=== PATIENT | female | born 1945 | race Caucasian/White ===

== ENCOUNTER 2017-09-25 08:28 | Outpatient (CLI) | payer MEDICARE ==
[~2017-09-25 08:28] MED LIST: CYCL-394 PO; DULO-31 PO; EST1T PO; FOLI1TAB16 PO; HYDR200T84 PO; METH2.5T PO; MULT-933 PO; MULT1TAB74 PO; NAPR220C15 PO; OMEP40CA37 PO; TRAM50TA2 PO
== END 2017-09-25 23:59 | disposition home or self-care (01) ==
LOC: RT 08:28
PROVIDERS: ATTEND Internal Medicine Rheumatology
DX: M34.1 CR(E)ST syndrome (principal); F17.210 Nicotine dependence, cigarettes, uncomplicated; M06.9 Rheumatoid arthritis, unspecified; I10 Essential (primary) hypertension; Z79.899 Other long term (current) drug therapy
CPT/HCPCS: 94010; 94729

== ENCOUNTER 2019-04-27 08:41 | Outpatient (CLI) | payer MEDICARE ==
[~2019-04-27 08:41] MED LIST changes: +OMEP40CA13 PO; -OMEP40CA37 PO
== END 2019-04-27 23:59 | disposition home or self-care (01) ==
LOC: RT 08:41
PROVIDERS: ATTEND Internal Medicine Rheumatology
DX: M34.1 CR(E)ST syndrome (principal); R06.02 Shortness of breath
CPT/HCPCS: 94010; 94729

== ENCOUNTER 2021-05-14 20:17 | Inpatient (IN) | payer MEDICARE ==
[~2021-05-14] VITALS: Ht 162.6 cm; Wt 85.0 kg
[~2021-05-14 20:17] MED LIST changes: -FOLI1TAB16 PO; +FOLI1TAB27 PO; +MULT-620 PO; -MULT1TAB74 PO; -OMEP40CA13 PO; +OMEP40CA21 PO
[2021-05-14] MEDS ORDERED: metoprolol tartrate 1mg/ml inj IV ONE ×2 (21:00→21:50)
[2021-05-14] MEDS ORDERED: metoprolol tartrate 50mg tablet PO ONE (21:00)
[2021-05-14 21:49] LABS: ALANINE AMINOTRANSFERASE 33 U/L (12-78); ALBUMIN 3.7 G/DL (3.4-5.0); ALKALINE PHOSPHATASE 94 IU/L (46-116); ANION GAP 16 (8-16); ASPARTATE AMINO TRANSFERASE 37 U/L (10-37); BILIRUBIN,TOTAL 0.4 MG/DL (0.1-1.0); BLOOD UREA NITROGEN 32 MG/DL (7-18); BUN/CREATININE RATIO 23.7 (6.6-38.0); CALCIUM 9.3 MG/DL (8.5-10.1); CHLORIDE 105 MMOL/L (99-107); CREATININE 1.35 MG/DL (0.40-0.90); GLUCOSE 127 MG/DL (70-104); POTASSIUM 3.7 MMOL/L (3.5-5.1); SODIUM 146 MMOL/L (135-145); TOTAL CARBON DIOXIDE 24.6 MMOL/L (24-32); TOTAL PROTEIN 7.5 G/DL (6.4-8.2); eGFR 38 ML/MIN
[2021-05-14] MEDS: cloNIDine 0.1 mg tablet PO ONE ×2 (21:50→22:28)
[2021-05-14 21:53] LABS: BASOPHILS # (AUTO) 0.1 X10'3 (0-0.2); BASOPHILS % (AUTO) 1.4 % (0-1); EOSINOPHILS # (AUTO) 0.1 X10'3 (0-0.9); EOSINOPHILS % (AUTO) 2.1 % (0-6); HEMATOCRIT 34.1 % (35.0-45.0); HEMOGLOBIN 11.1 g/dl (12.0-16.0); LYMPHOCYTES # (AUTO) 0.7 X10'3 (1.1-4.8); LYMPHOCYTES % (AUTO) 9.9 % (21-51); MEAN CORPUSCULAR HEMOGLOBIN 30.8 PG (27.0-31.0); MEAN CORPUSCULAR HGB CONC 32.5 g/dL (33.0-36.5); MEAN CORPUSCULAR VOLUME 94.7 FL (78-98); MEAN PLATELET VOLUME 9.2 FL (7.4-10.4); MONOCYTES # (AUTO) 0.7 X10'3 (0-0.9); NEUTROPHILS # (AUTO) 5.3 X10'3 (1.8-7.7); NEUTROPHILS % (AUTO) 76.6 % (42-75); PLATELET COUNT 239 X10'3 (140-440); RED CELL DISTRIBUTION WIDTH 14.7 % (11.5-14.5)
[2021-05-14] MEDS: nitroGLYCERIN 0.4mg SUBLingual tab SL PRN ×4 (22:00→22:30)
[2021-05-14 22:03] LABS: D-DIMER 3.21 MG/L FEU (0-0.50)
[2021-05-14] MEDS: aspirin 81mg tab.chew PO ONE ×2 (22:10→23:07)
[2021-05-14] MEDS ORDERED: CELE-193 PO (22:15)
[2021-05-14] MEDS ORDERED: iohexol 350MG/ML 100ml bottle IV ONE (22:17)
[2021-05-14] MEDS ORDERED: CYCL-1 PO (22:20)
[2021-05-14] MEDS ORDERED: NIFE90TA44 PO (22:20)
[2021-05-14] MEDS ORDERED: LOSA25TA96 PO (22:20)
--- NOTE | 2021-05-14 22:34 | NUR ---
catapres not given to pt. unable to alter the emar
[2021-05-14] MEDS ORDERED: morphine 4 MG/ML inj SYRINge IV ONE (22:50)
[2021-05-14] MEDS: niCARDipine-NS 40mg/200ml IVPB 200 ML IV SCH (23:14)
--- NOTE | 2021-05-14 23:31 | NUR ---
Dr. See advised target bp to be 140 systolic
[2021-05-15] VITALS (18 sets, daily range): BP systolic 92–183; BP diastolic 43–111
[2021-05-15] MEDS ORDERED: morphine 2 MG/ML inj. syringe IV PRN (02:10)
[2021-05-15] MEDS ORDERED: acetaminophen 325mg tablet PO PRN ×2 (02:10)
[2021-05-15] MEDS ORDERED: magnesium hydroxide 30ml (MOM) UD suspension PO PRN (02:10)
[2021-05-15] MEDS: morphine 4 MG/ML inj SYRINge IV PRN ×2 (02:58→19:37)
[2021-05-15] MEDS: niCARDipine-NS 40mg/200ml IVPB 200 ML IV SCH ×2 (03:02→22:45)
[2021-05-15] MEDS ORDERED: sod chloride 0.9% 10ml flush syringe IV ONE ×2 (08:00)
[2021-05-15] MEDS ORDERED: rocuronium 10mg/ml inj IV ONE ×2 (08:00)
[2021-05-15] MEDS ORDERED: etomidate 2mg/ml inj. ONE ×2 (08:00)
--- NOTE | 2021-05-15 09:13 | NUR ---
Patient in room CICU 2007. I have received report from Simon EATON and had the opportunity to ask questions and assume patient care. Diet order obtained from Dr. Leroy for pt. as she is NPO. Will start 24hr urine collection at next void.
[2021-05-15 09:23] LABS: C-REACTIVE PROTEIN 0.35 MG/DL (0.0-0.5); CHOL/HDL RATIO 3.2 (0.00-4.99); CHOLESTEROL 193 MG/DL (0-200); HDL CHOLESTEROL 61 MG/DL (35-60); LDL CHOLESTEROL 100 MG/DL (50-100); TRIGLYCERIDES 80 MG/DL (20-135)
[2021-05-15] MEDS: hydroxychloroquine 200mg tablet PO SCH (09:33)
[2021-05-15] MEDS ORDERED: LEFL10TA20 PO (10:08)
--- NOTE | 2021-05-15 10:28 | NUR ---
ROUNDS NOTE: Spouse present for rounds. Pt. to have work-up today including: ECHO, Carotids, Renal scan, 24h urine collection and IR consult for possible renal artery stent.
[2021-05-15] MEDS: captoPRIL 25mg tablet PO SCH ×2 (10:57→16:00)
[2021-05-15] MEDS: pantoprazole 40mg Tablet.DR PO SCH (10:57)
--- NOTE | 2021-05-15 11:04 | NUR ---
Pt. assisted off BSC. Pt. got to BSC without calling for assistance. RN instructed pt. to use call light prior to getting OOB as pt. is a Fall Risk. Pt. observed to be unsteady on her feet. Fall Risk bracelet placed on pt. Non-skid socks provided, Fall Risk problem added to her care plan.
--- NOTE | 2021-05-15 11:54 | NUR ---
Dr. Vitale at bedside. Akiko family friend at bedside.
[2021-05-15] MEDS ORDERED: LIDOcaine 1% (10mg/ml)w/preservative inj. 20ml MDV ONE (12:14)
[2021-05-15] MEDS ORDERED: midazolam 1 mg/ML 2ml injection ONE ×3 (12:15→16:00)
[2021-05-15] MEDS ORDERED: fentaNYL/PF 50MCG/1 ML 2ML syringe ONE (12:15)
[2021-05-15] MEDS ORDERED: heparin 1,000 UNITS/NS 500ml 500 ML ONE ×2 (12:15→14:12)
[2021-05-15] MEDS ORDERED: iohexol 300mg/ml 100ml inj. ONE ×2 (12:15→14:12)
--- NOTE | 2021-05-15 13:15 | NUR ---
Pt. to IR with Dr. Vitale.
[2021-05-15] MEDS ORDERED: diphenhydrAMINE 50 mg/ml inj ONE ×2 (13:45→13:47)
[2021-05-15] MEDS ORDERED: heparin 1,000unit/ml 10ml vial 10 ML ONE (13:48)
[2021-05-15] MEDS ORDERED: dexmedetomidine/D5W 100mL 100 ML IV SCH (15:25)
[2021-05-15] MEDS ORDERED: ziprasidone IM 20mg inj **IM only IM ONE (15:45)
--- NOTE | 2021-05-15 15:59 | NUR ---
Pt. combative and unable to follow instructions in Angio suite despite Precedex gtt. Dr. Leroy aware. Dr. Leroy getting ready to intubate pt. so the bleeding from her right groing angiogram site can be controlled. Luis Enrique with Drs. Leroy, Iam and patient in Angio. biofuels operations manager assiting with intubation.
[2021-05-15] MEDS ORDERED: propofol 1000mg/100ml bottle 100 ML IV ONE (16:18)
[2021-05-15] MEDS ORDERED: propofol 10mg/ml 20ml vial IV PRN (16:55)
[2021-05-15] MEDS ORDERED: propofol (Diprivan) 10mg/ml 100ml bottle IV PRN (17:05)
[2021-05-15 17:15] LABS: BASOPHILS % (AUTO) 0.6 % (0-1); EOSINOPHILS # (AUTO) 0.1 X10'3 (0-0.9); EOSINOPHILS % (AUTO) 1.5 % (0-6); HEMATOCRIT 23.3 % (35.0-45.0); HEMOGLOBIN 7.8 g/dl (12.0-16.0); LYMPHOCYTES # (AUTO) 0.6 X10'3 (1.1-4.8); LYMPHOCYTES % (AUTO) 9.7 % (21-51); MEAN CORPUSCULAR HEMOGLOBIN 31.4 PG (27.0-31.0); MEAN CORPUSCULAR HGB CONC 33.3 g/dL (33.0-36.5); MEAN CORPUSCULAR VOLUME 94.3 FL (78-98); MEAN PLATELET VOLUME 8.3 FL (7.4-10.4); MONOCYTES # (AUTO) 0.9 X10'3 (0-0.9); MONOCYTES % (AUTO) 15.8 % (2-12); NEUTROPHILS # (AUTO) 4.2 X10'3 (1.8-7.7); NEUTROPHILS % (AUTO) 72.4 % (42-75); PLATELET COUNT 154 X10'3 (140-440); RED BLOOD COUNT 2.47 X10'6 (4.20-5.60); RED CELL DISTRIBUTION WIDTH 14.6 % (11.5-14.5); WHITE BLOOD COUNT 5.8 X10'3 (4.5-11.0)
[2021-05-15 17:20] LABS: ABG BASE EXCESS -0.1 mmol/L (-2.0-2.0); ABG HCO3 23.2 mmol/L (22.0-26.0); ABG OXYGEN SATURATION 99.6 % (94-97); ABG PCO2 (T) 32.6 mmHg (32.0-45.0); ABG PO2 (T) 392.6 mmHg (75.0-100.0); ALLEN'S TEST POSITIVE; FMetHb 0.3 % (0.0-1.5); FO2Hb 98.3 % (94-97); PEEP 5 cm H2O; RESPIRATORY RATE 16 b/min; TIDAL VOLUME 400 mL; TOTAL HEMOGLOBIN 8.4 G/dl (12.0-16.0)
--- NOTE | 2021-05-15 17:37 | NUR ---
Pt. started bleeding profusely from right groin. Dr. Leroy and Dr. Roy aware. Pt. to go to OR. Manual pressure to groin. Blood obtained for type and screen, blood ordered. Fluid bolus given. RN called pt's . Diprivan increased. Hernandez catheter placed prior to pt. bleeding.
[2021-05-15] MEDS ORDERED: LIDOcaine 2% 10ml TOPICAL JELLY (Urojet) TP ONE (17:40)
[2021-05-15] MEDS ORDERED: heparin 10,000 units/1 ML INJ ONE (17:50)
[2021-05-15] MEDS: propofol 1000mg/100ml bottle 100 ML IV SCH ×2 (17:55→23:53)
[2021-05-15 18:03] LABS: TOTAL CELLS COUNTED 100
[2021-05-15 18:04] LABS: PLATELET ESTIMATE NORMAL
--- NOTE | 2021-05-15 18:04 | NUR ---
Dr. Roy at bedside. Blood started with warmer.
[2021-05-15 18:10] LABS: APTT 32 SECONDS (22-32); D-DIMER 4.18 MG/L FEU (0-0.50)
--- NOTE | 2021-05-15 18:14 | NUR ---
Pt. to OR. Report given to [facility] STONEWORKER.
[2021-05-15 18:16] LABS: PLATELET COUNT 165 X10'3 (140-440)
[2021-05-15] MEDS ORDERED: heparin 10,000 units/1 ML INJ IR ONE (18:30)
[2021-05-15] MEDS ORDERED: albumin (Human) 5% 250ml 250 ML IV ONE ×2 (18:39→18:51)
[2021-05-15] MEDS ORDERED: ePHEDrine 50MG/ML INJ. ONE (18:40)
[2021-05-15] MEDS ORDERED: MIDAZolam 1mg/ml 10ml vial ONE (18:41)
[2021-05-15] MEDS ORDERED: FENTANYL CITRATE/PF 50 MCG/1 ML VIAL ONE (18:50)
[2021-05-15] MEDS: ipratropium/albuterol 3ml nebule NEB SCH ×2 (19:00→22:51)
[2021-05-15] MEDS: hydrALAZINE 20mg/ml inj. IV PRN (19:36)
[2021-05-15 19:46] LABS: ABG BASE EXCESS -6.1 mmol/L (-2.0-2.0); ABG HCO3 18.6 mmol/L (22.0-26.0); ABG OXYGEN SATURATION 99.5 % (94-97); ABG PCO2 (T) 30.2 mmHg (32.0-45.0); ABG PO2 (T) 381.8 mmHg (75.0-100.0); FCOHb 0.3 % (0.0-3.9); FMetHb 0.3 % (0.0-1.5); FO2Hb 98.9 % (94-97); PATIENT TEMPERATURE 34.5; PEEP 5 cm H2O; RESPIRATORY RATE 14 b/min; TIDAL VOLUME 400 mL
[2021-05-15] MEDS: metoprolol tartrate 50mg tablet PO SCH (20:00)
[2021-05-15 21:06] LABS: BASOPHILS % (AUTO) 0.4 % (0-1); EOSINOPHILS % (AUTO) 0.7 % (0-6); HEMATOCRIT 28.6 % (35.0-45.0); HEMOGLOBIN 9.5 g/dl (12.0-16.0); LYMPHOCYTES # (AUTO) 0.6 X10'3 (1.1-4.8); LYMPHOCYTES % (AUTO) 8.9 % (21-51); MEAN CORPUSCULAR HEMOGLOBIN 29.8 PG (27.0-31.0); MEAN CORPUSCULAR HGB CONC 33.3 g/dL (33.0-36.5); MEAN CORPUSCULAR VOLUME 89.6 FL (78-98); MEAN PLATELET VOLUME 8.3 FL (7.4-10.4); MONOCYTES # (AUTO) 0.8 X10'3 (0-0.9); MONOCYTES % (AUTO) 12.3 % (2-12); NEUTROPHILS # (AUTO) 5.3 X10'3 (1.8-7.7); NEUTROPHILS % (AUTO) 77.7 % (42-75); PLATELET COUNT 137 X10'3 (140-440); RED BLOOD COUNT 3.19 X10'6 (4.20-5.60); RED CELL DISTRIBUTION WIDTH 18.2 % (11.5-14.5); WHITE BLOOD COUNT 6.9 X10'3 (4.5-11.0)
[2021-05-15 21:09] LABS: ALANINE AMINOTRANSFERASE 130 U/L (12-78); ALBUMIN 3.3 G/DL (3.4-5.0); ALBUMIN/GLOBULIN RATIO 1.4 (1.1-1.5); ALKALINE PHOSPHATASE 105 IU/L (46-116); ANION GAP 15 (8-16); APTT 29 SECONDS (22-32); ASPARTATE AMINO TRANSFERASE 194 U/L (10-37); BLOOD UREA NITROGEN 21 MG/DL (7-18); BUN/CREATININE RATIO 20.8 (6.6-38.0); CALCIUM 7.5 MG/DL (8.5-10.1); CHLORIDE 109 MMOL/L (99-107); CREATININE 1.01 MG/DL (0.40-0.90); GLUCOSE 115 MG/DL (70-104); MAGNESIUM 1.6 MG/DL (1.5-2.4); POTASSIUM 3.4 MMOL/L (3.5-5.1); SODIUM 145 MMOL/L (135-145); TOTAL CARBON DIOXIDE 20.7 MMOL/L (24-32); TOTAL PROTEIN 5.7 G/DL (6.4-8.2); eGFR 53 ML/MIN
[2021-05-15] MEDS ORDERED: furosemide 20 MG/2 ML vial IV ONE (22:40)
[2021-05-15] MEDS ORDERED: FENTANYL-0.9 % NACL/PF 100 ML IV PRN (22:40)
[2021-05-16] VITALS (32 sets, daily range): BP systolic 89–142; BP diastolic 35–66
[2021-05-16] MEDS: hydrALAZINE 20mg/ml inj. IV PRN (00:18)
[2021-05-16] MEDS ORDERED: furosemide 40mg/4ml inj IV ONE (01:15)
[2021-05-16] MEDS: ipratropium/albuterol 3ml nebule NEB SCH ×6 (02:26→23:00)
[2021-05-16 02:37] LABS: ABG BASE EXCESS -2.4 mmol/L (-2.0-2.0); ABG HCO3 22.9 mmol/L (22.0-26.0); ABG OXYGEN SATURATION 98.8 % (94-97); ABG PCO2 (T) 42.1 mmHg (32.0-45.0); ABG PO2 (T) 155.4 mmHg (75.0-100.0); FCOHb 0.1 % (0.0-3.9); FMetHb 0.2 % (0.0-1.5); FO2Hb 98.5 % (94-97); PATIENT TEMPERATURE 37.5; PEEP 5 cm H2O; RESPIRATORY RATE 14 b/min; TIDAL VOLUME 400 mL
[2021-05-16 02:56] LABS: BASOPHILS # (AUTO) 0.1 X10'3 (0-0.2); BASOPHILS % (AUTO) 0.6 % (0-1); EOSINOPHILS # (AUTO) 0.1 X10'3 (0-0.9); EOSINOPHILS % (AUTO) 0.7 % (0-6); HEMATOCRIT 30.4 % (35.0-45.0); LYMPHOCYTES # (AUTO) 0.7 X10'3 (1.1-4.8); LYMPHOCYTES % (AUTO) 8.7 % (21-51); MEAN CORPUSCULAR HEMOGLOBIN 29.2 PG (27.0-31.0); MEAN CORPUSCULAR HGB CONC 32.9 g/dL (33.0-36.5); MEAN CORPUSCULAR VOLUME 88.9 FL (78-98); MEAN PLATELET VOLUME 8.3 FL (7.4-10.4); MONOCYTES # (AUTO) 1.1 X10'3 (0-0.9); MONOCYTES % (AUTO) 13.4 % (2-12); NEUTROPHILS # (AUTO) 6.4 X10'3 (1.8-7.7); NEUTROPHILS % (AUTO) 76.6 % (42-75); PLATELET COUNT 159 X10'3 (140-440); RED BLOOD COUNT 3.42 X10'6 (4.20-5.60); WHITE BLOOD COUNT 8.4 X10'3 (4.5-11.0)
[2021-05-16 03:09] LABS: APTT 27 SECONDS (22-32)
[2021-05-16 03:10] LABS: ALANINE AMINOTRANSFERASE 136 U/L (12-78); ALBUMIN 3.3 G/DL (3.4-5.0); ALBUMIN/GLOBULIN RATIO 1.2 (1.1-1.5); ALKALINE PHOSPHATASE 115 IU/L (46-116); ANION GAP 14 (8-16); ASPARTATE AMINO TRANSFERASE 173 U/L (10-37); BILIRUBIN,TOTAL 0.7 MG/DL (0.1-1.0); BLOOD UREA NITROGEN 22 MG/DL (7-18); BUN/CREATININE RATIO 17.5 (6.6-38.0); CALCIUM 7.8 MG/DL (8.5-10.1); CHLORIDE 108 MMOL/L (99-107); CREATININE 1.26 MG/DL (0.40-0.90); GLUCOSE 109 MG/DL (70-104); MAGNESIUM 1.6 MG/DL (1.5-2.4); PHOSPHORUS 4.5 MG/DL (2.3-4.5); POTASSIUM 3.4 MMOL/L (3.5-5.1); SODIUM 145 MMOL/L (135-145); TOTAL CARBON DIOXIDE 23.5 MMOL/L (24-32); TRIGLYCERIDES 88 MG/DL (20-135); eGFR 41 ML/MIN
[2021-05-16 03:52] LABS: ANISOCYTOSIS 2+; PLATELET ESTIMATE NORMAL
[2021-05-16 03:55] LABS: POLYCHROMASIA FEW
[2021-05-16 03:57] LABS: ELLIPTOCYTES FEW
[2021-05-16 03:58] LABS: SCHISTOCYTES FEW
[2021-05-16] MEDS: propofol 1000mg/100ml bottle 100 ML IV SCH (04:53)
[2021-05-16] MEDS: niCARDipine-NS 40mg/200ml IVPB 200 ML IV SCH (06:45)
--- NOTE | 2021-05-16 06:51 | NUR ---
Dr. Roy in to see pt.
--- NOTE | 2021-05-16 07:24 | NUR ---
Dr. Leroy here to see pt. OGT placed to administer meds.
[2021-05-16] MEDS ORDERED: ringers solution, lacted 1,000 ML IV ONE ×2 (07:30→14:25)
--- NOTE | 2021-05-16 07:31 | NUR ---
Dr. Leroy aware of low urine output. Ordered 500cc LR bolus which is infusing now.
[2021-05-16] MEDS: dexmedetomidine/D5W 100mL 100 ML IV SCH ×4 (07:34→21:52)
[2021-05-16] MEDS: captoPRIL 25mg tablet PO SCH (07:37)
[2021-05-16] MEDS: metoprolol tartrate 50mg tablet PO SCH (07:38)
[2021-05-16] MEDS: pantoprazole 40mg Tablet.DR PO SCH (07:38)
[2021-05-16] MEDS: hydroxychloroquine 200mg tablet PO SCH (07:38)
--- NOTE | 2021-05-16 09:00 | NUR ---
Dr. Gomez in to see pt.
--- NOTE | 2021-05-16 09:33 | NUR ---
Pt. placed on spontaneous this am with increased RR to 35 and low tidal volumes. Will attempt weaning parameters again once sedation (precedex) is effective. Attempting to wean Propofol and Fentanyl off.
--- NOTE | 2021-05-16 09:40 | NUR ---
Luis Enrique at bedside.
[2021-05-16] MEDS ORDERED: acetaminophen 325mg/10.15ml oral unit dose solution OGT PRN ×2 (11:15)
[2021-05-16] MEDS ORDERED: magnesium hydroxide 30ml (MOM) UD suspension OGT PRN (11:16)
[2021-05-16] MEDS: lansoprazole 15mg solutab OGT SCH (11:30)
[2021-05-16] MEDS: LEFLUNOMIDE 10 MG TABLET OGT SCH (11:42)
[2021-05-16 12:10] LABS: CLARITY,URINE CLOUDY (Clear); COLOR,URINE YELLOW (Yellow); GLUCOSE, URINE NEGATIVE (Neg); KETONES,URINE TRACE mg/dl (Neg); LEUKOCYTE ESTERASE ,URINE TRACE (Neg); NITRITES, URINE NEGATIVE (Neg); OCCULT BLOOD,URINE NEGATIVE (Neg); PROTEIN,URINE TRACE mg/dl (Neg)
[2021-05-16 12:26] LABS: UA COLLECTION TYPE NON-SPECIFIED
[2021-05-16 12:28] LABS: FINE GRANULAR CAST 0-3 /LPF (NEGATIVE)
[2021-05-16 12:29] LABS: BACTERIA,URINE FEW /HPF (Neg); MUCUS STRANDS FEW /LPF (Neg); SQUAMOUS EPITHELIAL CELL,UR FEW /LPF (FEW)
[2021-05-16 12:40] LABS: TOTAL PROTEIN,URINE RANDOM 58.1 MG/DL
--- NOTE | 2021-05-16 13:31 | NUR ---
TF consult: Pt presented with c/o CP and admit for type B aortic dissection, found to have left renal artery ostial stenosis. Pt s/p repair of right iliac artery and remains intubated at this time. Noted pt with Propofol on med list however visualized at bed side that it's currently being held. Pt with an OGT in place, see recommendations below. No documented BM since admit. Pt with PRN bowel care available though not documented to be given. Will continue to follow closely and make recommendations as appropriate. Recommendations: 1) Continuous TF via OGT using Vital AF with 70 mL/hr goal. To provide 1680 mL total volume/day, 2016 kcal, 126 g protein, and 1362 mL water 2) Monitor Propofol rate and need to adjust TF 3) Additional 125 mL water flush Q4H; monitor serum Na 4) Prealbumin q Saturday/ 5) Daily scaled weights 6) Routine bowel care 7) Advance to regular diet as medically indicated following extubation; lipid panel WNL Addendum: 05/16/21 at [address] Amended: Links added.
--- NOTE | 2021-05-16 14:00 | NUR ---
Tube feeding started.
--- NOTE | 2021-05-16 14:22 | NUR ---
Dr. Leroy here talking with pt's spouse re. plan of care.
[2021-05-16] MEDS ORDERED: vancomycin/NS 1 GM ADD-VANTAGE 250 ML IV ONE (14:30)
[2021-05-16] MEDS ORDERED: cefepime 1GM/NS ADD-VANTAGE 100 ML IV SCH (14:30)
[2021-05-16] MEDS ORDERED: clopidogrel 75mg tablet PO SCH (14:30)
[2021-05-16] MEDS ORDERED: cefepime 1GM in D5W 50mL 50 ML IV SCH (14:41)
[2021-05-16] MEDS ORDERED: potassium Cl 10 mEq/100mL bag IV ONE (15:35)
--- NOTE | 2021-05-16 18:03 | NUR ---
Problems reprioritized. Patient report given, questions answered & plan of care reviewed with NOC RN.
[2021-05-16] MEDS: metoprolol tartrate 50mg tablet OGT SCH (20:00)
[2021-05-16] MEDS: mineral oil/petrolatum ophthal oint EACHEYE SCH (20:21)
[2021-05-16] MEDS ORDERED: duloxetine 30mg CAPSULE.DR OGT SCH (21:00)
[2021-05-16] MEDS ORDERED: venlafaxine 25mg tablet OGT SCH (21:00)
[2021-05-16] MEDS: HYDROmorphone 1 mg/ml syringe IV PRN (21:53)
[2021-05-17] VITALS (28 sets, daily range): BP systolic 49–147; BP diastolic 16–94
[2021-05-17] MEDS: mineral oil/petrolatum ophthal oint EACHEYE SCH ×3 (01:10→20:00)
[2021-05-17] MEDS: dexmedetomidine/D5W 100mL 100 ML IV SCH (01:29)
[2021-05-17 02:39] LABS: BASOPHILS % (AUTO) 0.2 % (0-1); EOSINOPHILS # (AUTO) 0.1 X10'3 (0-0.9); EOSINOPHILS % (AUTO) 0.6 % (0-6); HEMATOCRIT 27.3 % (35.0-45.0); LYMPHOCYTES # (AUTO) 0.5 X10'3 (1.1-4.8); LYMPHOCYTES % (AUTO) 6.1 % (21-51); MEAN CORPUSCULAR HEMOGLOBIN 29.7 PG (27.0-31.0); MEAN CORPUSCULAR HGB CONC 33.1 g/dL (33.0-36.5); MEAN CORPUSCULAR VOLUME 89.6 FL (78-98); MEAN PLATELET VOLUME 8.8 FL (7.4-10.4); MONOCYTES % (AUTO) 12.7 % (2-12); NEUTROPHILS # (AUTO) 6.4 X10'3 (1.8-7.7); NEUTROPHILS % (AUTO) 80.4 % (42-75); PLATELET COUNT 129 X10'3 (140-440); RED BLOOD COUNT 3.05 X10'6 (4.20-5.60)
[2021-05-17 02:59] LABS: ALANINE AMINOTRANSFERASE 93 U/L (12-78); ALBUMIN 2.7 G/DL (3.4-5.0); ALBUMIN/GLOBULIN RATIO 0.9 (1.1-1.5); ALKALINE PHOSPHATASE 119 IU/L (46-116); ANION GAP 14 (8-16); ASPARTATE AMINO TRANSFERASE 72 U/L (10-37); BILIRUBIN,TOTAL 0.6 MG/DL (0.1-1.0); BLOOD UREA NITROGEN 29 MG/DL (7-18); BUN/CREATININE RATIO 18.7 (6.6-38.0); CALCIUM 8.2 MG/DL (8.5-10.1); CHLORIDE 106 MMOL/L (99-107); CREATININE 1.55 MG/DL (0.40-0.90); GLUCOSE 145 MG/DL (70-104); POTASSIUM 4.1 MMOL/L (3.5-5.1); SODIUM 141 MMOL/L (135-145); TOTAL PROTEIN 5.6 G/DL (6.4-8.2); eGFR 32 ML/MIN
[2021-05-17] MEDS: ipratropium/albuterol 3ml nebule NEB SCH ×3 (03:00→11:32)
[2021-05-17 03:05] LABS: MAGNESIUM 1.8 MG/DL (1.5-2.4)
[2021-05-17 03:24] LABS: ABG BASE EXCESS -2.5 mmol/L (-2.0-2.0); ABG HCO3 21.5 mmol/L (22.0-26.0); ABG OXYGEN SATURATION 95.4 % (94-97); ABG PCO2 (T) 33.9 mmHg (32.0-45.0); FCOHb 0.3 % (0.0-3.9); FMetHb 0.1 % (0.0-1.5); PATIENT TEMPERATURE 36.8; PEEP 5 cm H2O; RESPIRATORY RATE 14 b/min; TIDAL VOLUME 400 mL; TOTAL HEMOGLOBIN 10.1 G/dl (12.0-16.0)
[2021-05-17] MEDS ORDERED: niCARDipine-NS 40mg/200ml IVPB 200 ML IV SCH (04:55)
--- NOTE | 2021-05-17 04:57 | NUR ---
Pt is a 75 yo female, admitted 05/14/2021, day 3 of hospitalization, Full code, NDA, No isolation, Bilateral soft wrist restraints in place, orders and documentation in accordance with facility policies and procedures. Admitted for CP and hypertensive crisis. Patient was seen by ER for Chest Pain. Noted to have Hypertensive Emergency and placed on Cardene gtt. Troponin elevated, no EKG changes to suggest acute IL per ER MD. D-Dimer was elevated patient underwent CT Angio. This revealed a Type B dissection. ER MD did call CT surgery and eventually [facility] for transfer. Recommendation from their standpoint was BP mgmt. Admitted now to ICU for BP control. Pt was taken to IR for renal stent procedure. Pt was given Versed, Benadryl, and Fentanyl. Pt had a severe panic attack requiring her to be intubated for airway protection. Pt then was brought to ICU. Upon admit to ICU, STAMPING PRESS OPERATOR found the patient bleeding from her puncture site requiring her to go to OR to have a procedure to stop the bleeding. Pt returned from OR with a wound vac in place in right groin. In addition, pt required several units of blood, pre and post surgery. Currently, pt remains intubated with plans to possibly extubate today. Sedated on Propofol at 8 mcgs and and Precedex at 1.2 mcgs. At this time, Pt is following some simple commands, pt is able to determine she is in pain and able to tell me she has pain. She was medicated 2 times this shift for pain. Pt is afebrile moves all extremities. HR SR 70-80's, BP 121/67 via right brachial A-Line, good blood return good wave form. IVF infusing via Rt IJ TLC. Weak pulses, generalized trace edema. Pt is intubated with 7.5 ETT at 22 cm, Vent: AC/PRVC rate 10, TV 447+/-, Fio2 35%, PEEP 5. Suction and getting nothing out. Breath sounds, coarse at bases equal, symmetrical, non labored, tolerating vent settings well. Hypoactive bowel sounds, soft non tender, non distended, round obese abdomen. OGT infusing Vital AF at goal rate of 70 ml's hr, no residual noted. Glucose checks Q6 hours, not requiring coverage at this time. Hernandez draining anoop urine, 10-20 ml's hour. Creat elevated this AM 1.55 Phos 5.0. BUN 29. Skin intact, wound vac intact, suction at 125 mm/hg. No drainage noted. Vancomycin discontinued. Pt remains safe. Continue to monitor.
[2021-05-17] MEDS: clopidogrel 75mg tablet OGT SCH (09:23)
[2021-05-17] MEDS: lansoprazole 15mg solutab OGT SCH (09:23)
[2021-05-17] MEDS: hydroxychloroquine 200mg tablet OGT SCH (09:23)
[2021-05-17] MEDS: metoprolol tartrate 50mg tablet OGT SCH ×2 (09:24→20:00)
[2021-05-17] MEDS: LEFLUNOMIDE 10 MG TABLET OGT SCH (09:24)
[2021-05-17] MEDS ORDERED: furosemide 40mg/4ml inj IV ONE (13:20)
[2021-05-17] MEDS ORDERED: VANCOMYCIN 750MG IV in NS 250 ML IV SCH (15:00)
[2021-05-17] MEDS ORDERED: vancomycin/NS 500MG ADD-VANT 100 ML IV SCH (15:00)
--- NOTE | 2021-05-17 17:38 | NUR ---
Patient is AOx1, very confused and restless. Pt was extubated today 05/17/21 @1145. NC at 3L. Pt Remains npo at this time pending swallow eval. BP is stable. Artery line is positional. Gave 40mg of Lasix. Urinary output has improved. Blood sugar checks Q6 hrs. Skin is intact. Addendum: 05/17/21 at 1748 by Simon Gregorio RN Removed bilateral wrist restraints.
--- NOTE | 2021-05-17 18:30 | NUR ---
Patient in room CICU 2008. I have received report from Day shift RN and had the opportunity to ask questions and assume patient care with [facility] student Chela.
--- NOTE | 2021-05-17 20:00 | NUR ---
Patient had critical blood glucose value of 63. 25mg of D50 was given and upon reassessment of glucose was 99.
[2021-05-17] MEDS ORDERED: acetaminophen 1,000mg/100ml IV 100 ML IV PRN (20:15)
[2021-05-17] MEDS ORDERED: dextrose 50%-water 50ml dispensing syringe IV ONE (20:29)
[2021-05-17] MEDS ORDERED: DEXTROSE 15 GM of carb/4 tabs (each vial/BOTTLE has 4 tablets) PO PRN ×2 (20:30)
[2021-05-17] MEDS ORDERED: dextrose 50%-water 50ml dispensing syringe IV PRN ×2 (20:30)
[2021-05-17] MEDS: heparin, porcine 5000 units/ml vial SQ SCH (20:41)
[2021-05-17] MEDS: metoprolol tartrate 1mg/ml inj IV PRN (21:44)
[2021-05-17] MEDS: haloperidol lactate 5mg/ml inj IM PRN ×2 (21:44→22:38)
--- NOTE | 2021-05-17 21:59 | NUR ---
Patient was switched to IV Metoprolol 10mg. 5mg has been given and new BP is 97/75. Holding other 5mg of Metoprolol until patient meets orders to give other 5mg.
[2021-05-17] MEDS: HYDROmorphone 1 mg/ml syringe IV PRN (22:38)
[2021-05-18] VITALS (21 sets, daily range): BP systolic 110–184; BP diastolic 39–112
[2021-05-18 02:34] LABS: BASOPHILS % (AUTO) 0.5 % (0-1); EOSINOPHILS # (AUTO) 0.1 X10'3 (0-0.9); EOSINOPHILS % (AUTO) 0.8 % (0-6); HEMATOCRIT 25.6 % (35.0-45.0); HEMOGLOBIN 8.5 g/dl (12.0-16.0); LYMPHOCYTES # (AUTO) 0.8 X10'3 (1.1-4.8); LYMPHOCYTES % (AUTO) 9.8 % (21-51); MEAN CORPUSCULAR HEMOGLOBIN 30.3 PG (27.0-31.0); MEAN CORPUSCULAR HGB CONC 33.4 g/dL (33.0-36.5); MEAN CORPUSCULAR VOLUME 90.8 FL (78-98); MEAN PLATELET VOLUME 9.5 FL (7.4-10.4); MONOCYTES # (AUTO) 0.5 X10'3 (0-0.9); MONOCYTES % (AUTO) 5.8 % (2-12); NEUTROPHILS # (AUTO) 6.8 X10'3 (1.8-7.7); NEUTROPHILS % (AUTO) 83.1 % (42-75); PLATELET COUNT 139 X10'3 (140-440); RED BLOOD COUNT 2.82 X10'6 (4.20-5.60); RED CELL DISTRIBUTION WIDTH 18.8 % (11.5-14.5); WHITE BLOOD COUNT 8.2 X10'3 (4.5-11.0)
[2021-05-18 02:43] LABS: APTT 28 SECONDS (22-32)
[2021-05-18 02:46] LABS: ALANINE AMINOTRANSFERASE 79 U/L (12-78); ALBUMIN 2.8 G/DL (3.4-5.0); ALBUMIN/GLOBULIN RATIO 0.9 (1.1-1.5); ALKALINE PHOSPHATASE 137 IU/L (46-116); ANION GAP 16 (8-16); ASPARTATE AMINO TRANSFERASE 69 U/L (10-37); BILIRUBIN,TOTAL 0.8 MG/DL (0.1-1.0); BLOOD UREA NITROGEN 36 MG/DL (7-18); BUN/CREATININE RATIO 23.2 (6.6-38.0); CALCIUM 8.6 MG/DL (8.5-10.1); CHLORIDE 105 MMOL/L (99-107); CREATININE 1.55 MG/DL (0.40-0.90); GLUCOSE 98 MG/DL (70-104); PHOSPHORUS 4.3 MG/DL (2.3-4.5); POTASSIUM 3.6 MMOL/L (3.5-5.1); PREALBUMIN 12.6 MG/DL (19-36); SODIUM 143 MMOL/L (135-145); TOTAL PROTEIN 5.9 G/DL (6.4-8.2); eGFR 32 ML/MIN
--- NOTE | 2021-05-18 04:48 | NUR ---
End of shift summary: after report was received the patient was very restless and grabbing and pulling at lines/cables connected to her. Constant redirection was needed throughout the night to avoid patient from harming herself. Frequent neuro checks were done throughout shift, patient has remained consistent with name, home address, and current president only. She does not know what year it is nor mostly where she is, location varies. Patient was given Dilaudid and Haldol per medication orders in order to ease patients restlessness working only for a small portion of the night. Patient refuses to wear nasal canula despite sating in the 80's. She does not wear one at home and feels claustrophobic whilst wearing it. Patient also removed LAC IV in her restless state. She remains tachycardic. Recommend having a sitter in room if RN has two patients for the personal safety of Mrs. Randolph.
[2021-05-18] MEDS: LEFLUNOMIDE 10 MG TABLET OGT SCH (08:13)
[2021-05-18] MEDS: hydroxychloroquine 200mg tablet OGT SCH (08:13)
[2021-05-18] MEDS: lansoprazole 15mg solutab OGT SCH (08:13)
[2021-05-18] MEDS: heparin, porcine 5000 units/ml vial SQ SCH ×2 (08:14→20:08)
[2021-05-18] MEDS: clopidogrel 75mg tablet OGT SCH (08:21)
[2021-05-18] MEDS: metoprolol tartrate 25mg tablet PO SCH ×2 (09:54→20:08)
[2021-05-18] MEDS ORDERED: magnesium hydroxide 30ml (MOM) UD suspension PO PRN (11:43)
[2021-05-18] MEDS ORDERED: acetaminophen 325mg tablet PO PRN ×2 (11:45)
[2021-05-18] MEDS: ESCITALOPRAM OXALATE 5 MG TABLET PO SCH (11:56)
[2021-05-18] MEDS ORDERED: cyclobenzaprine 10mg tablet PO SCH (13:50)
[2021-05-18] MEDS ORDERED: cyclobenzaprine 10mg tablet PO PRN (15:26)
[2021-05-18] MEDS: cyclobenzaprine 10mg tablet PO SCH (20:09)
--- NOTE | 2021-05-18 20:38 | NUR ---
Upon receiving Mrs. Randolph today she seemed drastically better from the night before. Able to recall events of last night and knew where and when she was. At 2030 I went back into her room and spoke with her after she started pulling at her lines, she said, that she saw dogs in the hallway walking by and that she knows they are not real. But it was still making her uneasy. I asked her general neuro questions of; what year it was, she responded "1923." I clarified, and asked what year she was born, she responded correctly but made no connection to her previous answer. She knows who the current president is and her full name and her husbands. But possible sundowning or still weaning off of sedation meds is occurring?
[2021-05-18] MEDS: metoprolol tartrate 1mg/ml inj IV PRN (22:23)
[2021-05-18] MEDS: HYDROmorphone 1 mg/ml syringe IV PRN (23:18)
[2021-05-19] VITALS (15 sets, daily range): BP systolic 93–227; BP diastolic 54–116
[2021-05-19] MEDS ORDERED: guanFACINE 1 mg tablet PO ONE (00:01)
[2021-05-19] MEDS ORDERED: Melatonin 3mg tablet PO ONE (00:01)
[2021-05-19] MEDS ORDERED: OLANZAPINE 5 MG TABLET PO ONE (00:02)
[2021-05-19] MEDS ORDERED: olanzapine 10mg tablet PO ONE (00:02)
--- NOTE | 2021-05-19 00:33 | NUR ---
The patients mental condition has steadily been declining. Her hallucinations appeared to be getting worse and she was becoming increasingly more restless. After speaking with Dr. Sharpe, orders were entered at his request for PO meds: zyprexa 10mg, melatonin 9mg, and tenex 1mg. The zyprexa and melatonin were given at this time. Patient has eyes locked to ceiling and is muttering to herself. Awaiting the affects of PO meds given and will continue to assess her behavior.
[2021-05-19 03:19] LABS: BASOPHILS % (AUTO) 0.7 % (0-1); EOSINOPHILS % (AUTO) 0.7 % (0-6); HEMATOCRIT 25.1 % (35.0-45.0); HEMOGLOBIN 8.2 g/dl (12.0-16.0); LYMPHOCYTES # (AUTO) 0.6 X10'3 (1.1-4.8); LYMPHOCYTES % (AUTO) 9.5 % (21-51); MEAN CORPUSCULAR HEMOGLOBIN 29.6 PG (27.0-31.0); MEAN CORPUSCULAR HGB CONC 32.7 g/dL (33.0-36.5); MEAN CORPUSCULAR VOLUME 90.6 FL (78-98); MEAN PLATELET VOLUME 9.4 FL (7.4-10.4); MONOCYTES # (AUTO) 0.2 X10'3 (0-0.9); MONOCYTES % (AUTO) 2.7 % (2-12); NEUTROPHILS # (AUTO) 5.6 X10'3 (1.8-7.7); NEUTROPHILS % (AUTO) 86.4 % (42-75); PLATELET COUNT 160 X10'3 (140-440); RED BLOOD COUNT 2.77 X10'6 (4.20-5.60); RED CELL DISTRIBUTION WIDTH 18.6 % (11.5-14.5); WHITE BLOOD COUNT 6.4 X10'3 (4.5-11.0)
[2021-05-19 03:28] LABS: APTT 27 SECONDS (22-32)
[2021-05-19 03:33] LABS: ALANINE AMINOTRANSFERASE 96 U/L (12-78); ALBUMIN 2.9 G/DL (3.4-5.0); ALBUMIN/GLOBULIN RATIO 0.9 (1.1-1.5); ALKALINE PHOSPHATASE 238 IU/L (46-116); ANION GAP 16 (8-16); ASPARTATE AMINO TRANSFERASE 134 U/L (10-37); BILIRUBIN,TOTAL 1.2 MG/DL (0.1-1.0); BLOOD UREA NITROGEN 40 MG/DL (7-18); BUN/CREATININE RATIO 26.5 (6.6-38.0); CALCIUM 8.8 MG/DL (8.5-10.1); CHLORIDE 106 MMOL/L (99-107); CREATININE 1.51 MG/DL (0.40-0.90); GLUCOSE 115 MG/DL (70-104); PHOSPHORUS 4.3 MG/DL (2.3-4.5); POTASSIUM 3.8 MMOL/L (3.5-5.1); SODIUM 143 MMOL/L (135-145); TOTAL CARBON DIOXIDE 21.1 MMOL/L (24-32); TOTAL PROTEIN 6.2 G/DL (6.4-8.2); eGFR 33 ML/MIN
[2021-05-19 04:30] LABS: ANISOCYTOSIS 2+; PLATELET ESTIMATE NORMAL
[2021-05-19 04:31] LABS: ELLIPTOCYTES FEW; POLYCHROMASIA FEW
[2021-05-19] MEDS: heparin, porcine 5000 units/ml vial SQ SCH ×2 (07:53→20:28)
[2021-05-19] MEDS: hydroxychloroquine 200mg tablet PO SCH (07:55)
[2021-05-19] MEDS: pantoprazole 40mg Tablet.DR PO SCH (07:55)
[2021-05-19] MEDS: metoprolol tartrate 25mg tablet PO SCH ×2 (07:56→20:28)
[2021-05-19] MEDS: clopidogrel 75mg tablet PO SCH (07:56)
[2021-05-19] MEDS: losartan 25mg tablet PO SCH (07:56)
[2021-05-19] MEDS: LEFLUNOMIDE 10 MG TABLET PO SCH (07:56)
[2021-05-19] MEDS: ESCITALOPRAM OXALATE 5 MG TABLET PO SCH (07:57)
[2021-05-19] MEDS: haloperidol lactate 5mg/ml inj IM PRN (11:14)
[2021-05-19] MEDS: hydrALAZINE 20mg/ml inj. IV PRN ×2 (11:14→14:56)
--- NOTE | 2021-05-19 12:25 | NUR ---
Reassessment: Pt TF discontinued following extubation 05/17, per RN at rounds yesterday 05/18 pt is able to swallow well and currently on Renal diet eating avg 50% meals. Pt is currently on 3L HFNC and confused, noted to be experiencing hallucinations per RN at rounds. Noted recent documented wt to be 89.4 kg on 05/18/21 w/ no mention of how wt was obtained; using bedscale wt 68 kg from 05/18/23 to calculate current estimated energy and protein needs. LBM 05/15, bowel care available PRN. Will make appropriate nutrition interventions once mentation improves and pending further PO trends. Recommendations: 1) Continue Renal diet; encourage PO 2) Monitor need for additional protein/ONS 3) Routine bowel care 4) Weekly scaled wts Addendum: 05/19/21 at [address] Amended: Links added. Addendum: 05/19/21 at [address] I have reviewed and agree with note by Industrial Machine System Technician. IJEOMA Kirk
--- NOTE | 2021-05-19 13:25 | NUR ---
Patient in room PCU 3026. I have received report from CARYN BENAVIDEZ RN and had the opportunity to ask questions and assume patient care. This RN assumed the patient care. pt is alert to self and person. she's hallucinated and seem to have both auditory and visual hallucinations. I agree with furniture makerjourney lineman otherwise. assessed patient surgical site. mild bruising on right side of surgical dressing. patient has wound vac with no drainage present in the chamber. bp high, has prn treatments. has sitter in room. will continue to monitor.
[2021-05-19] MEDS: metoprolol tartrate 1mg/ml inj IV PRN (13:54)
[2021-05-19] MEDS ORDERED: VANCOMYCIN LEVEL IV ONE (14:30)
[2021-05-19] MEDS ORDERED: niCARDipine-NS 40mg/200ml IVPB 250 ML IV SCH (15:25)
--- NOTE | 2021-05-19 17:17 | NUR ---
Page Sent PAGER ID: [phone] MESSAGE: [id number]. Dorinda Agustín. FYI pt BP has improved some. she's down in the 150's systolic over 70's. I'm monitoring her [id number]. do you want to start the cardene gtt now or are you okay with us monitoring and start as needed later. [phone]
[2021-05-19] MEDS: cyclobenzaprine 10mg tablet PO SCH (20:28)
[2021-05-19] MEDS: HYDROmorphone 1 mg/ml syringe IV PRN (23:37)
[2021-05-20] VITALS (7 sets, daily range): BP systolic 127–185; BP diastolic 57–88
--- NOTE | 2021-05-20 | NUR ---
pt confused, attempting to get out of bed and kick staff. frequent re-orienting utilized but not helping. order for restraints given per on-call. will continue to monitor.
[2021-05-20] MEDS: haloperidol lactate 5mg/ml inj IM PRN (00:25)
[2021-05-20] MEDS ORDERED: furosemide 20 MG/2 ML vial IV ONE (01:00)
[2021-05-20 02:00] LABS: ABG BASE EXCESS -3.4 mmol/L (-2.0-2.0); ABG HCO3 20.6 mmol/L (22.0-26.0); ABG PCO2 (T) 33.6 mmHg (32.0-45.0); ABG PO2 (T) 87.4 mmHg (75.0-100.0); ALLEN'S TEST POSITIVE; FLOW 4 L/min; FMetHb 0.1 % (0.0-1.5); FO2Hb 95.9 % (94-97); PATIENT TEMPERATURE 37.2; TOTAL HEMOGLOBIN 9.4 G/dl (12.0-16.0)
--- NOTE | 2021-05-20 02:08 | NUR ---
pt is breathing heavily, paged on-call. informed of patient anxiousness and behavior. order for x-ray, ABGs and breathing treatment. Addendum: 05/20/21 at 0211 by Roseanna Gregorio RN pt is breathing heavily, paged on-call. informed of patient anxiousness and behavior. order for x-ray, ABGs, 1 dose of lasix and breathing treatment.
[2021-05-20] MEDS: hydrALAZINE 20mg/ml inj. IV PRN ×2 (06:18→16:29)
[2021-05-20] MEDS: LEFLUNOMIDE 10 MG TABLET PO SCH (08:00)
[2021-05-20] MEDS: heparin, porcine 5000 units/ml vial SQ SCH ×2 (09:02→21:24)
[2021-05-20] MEDS: clopidogrel 75mg tablet PO SCH (09:03)
[2021-05-20] MEDS: pantoprazole 40mg Tablet.DR PO SCH (09:03)
[2021-05-20] MEDS: losartan 25mg tablet PO SCH (09:05)
[2021-05-20] MEDS: metoprolol tartrate 25mg tablet PO SCH ×2 (09:06→21:25)
[2021-05-20] MEDS: ESCITALOPRAM OXALATE 5 MG TABLET PO SCH (09:06)
--- NOTE | 2021-05-20 11:00 | NUR ---
Neuro consult Success A new connect request was successfully created for: francois yuniel : 1945 ConnectID: [id number] REASON: Family Discussion ACUITY: Acuity Level 4 SUBMITTED: 05/20/2021 11:00 PDT
[2021-05-20] MEDS: hydroxychloroquine 200mg tablet PO SCH (11:25)
[2021-05-20 11:57] LABS: BASOPHILS % (AUTO) 0.6 % (0-1); EOSINOPHILS # (AUTO) 0.1 X10'3 (0-0.9); EOSINOPHILS % (AUTO) 1.6 % (0-6); HEMATOCRIT 26.5 % (35.0-45.0); HEMOGLOBIN 8.6 g/dl (12.0-16.0); LYMPHOCYTES # (AUTO) 0.7 X10'3 (1.1-4.8); LYMPHOCYTES % (AUTO) 12.7 % (21-51); MEAN CORPUSCULAR HEMOGLOBIN 29.7 PG (27.0-31.0); MEAN CORPUSCULAR HGB CONC 32.5 g/dL (33.0-36.5); MEAN CORPUSCULAR VOLUME 91.2 FL (78-98); MEAN PLATELET VOLUME 8.5 FL (7.4-10.4); MONOCYTES # (AUTO) 0.3 X10'3 (0-0.9); MONOCYTES % (AUTO) 4.5 % (2-12); NEUTROPHILS # (AUTO) 4.7 X10'3 (1.8-7.7); NEUTROPHILS % (AUTO) 80.6 % (42-75); PLATELET COUNT 186 X10'3 (140-440); RED BLOOD COUNT 2.91 X10'6 (4.20-5.60); WHITE BLOOD COUNT 5.9 X10'3 (4.5-11.0)
[2021-05-20 12:08] LABS: APTT 26 SECONDS (22-32)
[2021-05-20 12:20] LABS: ALANINE AMINOTRANSFERASE 73 U/L (12-78); ALBUMIN 2.9 G/DL (3.4-5.0); ALBUMIN/GLOBULIN RATIO 0.9 (1.1-1.5); ALKALINE PHOSPHATASE 210 IU/L (46-116); ANION GAP 16 (8-16); ASPARTATE AMINO TRANSFERASE 61 U/L (10-37); BILIRUBIN,TOTAL 0.8 MG/DL (0.1-1.0); BLOOD UREA NITROGEN 44 MG/DL (7-18); BUN/CREATININE RATIO 31.9 (6.6-38.0); CHLORIDE 107 MMOL/L (99-107); CREATININE 1.38 MG/DL (0.40-0.90); GLUCOSE 109 MG/DL (70-104); PHOSPHORUS 3.6 MG/DL (2.3-4.5); POTASSIUM 3.3 MMOL/L (3.5-5.1); SODIUM 145 MMOL/L (135-145); TOTAL PROTEIN 6.2 G/DL (6.4-8.2); eGFR 37 ML/MIN
--- NOTE | 2021-05-20 12:41 | NUR ---
Neuro consult complete with Dr Sheehan. He will recommend an MRI of the brain for further eval. Pending Dr Aparicio to order.
--- NOTE | 2021-05-20 14:56 | NUR ---
Dr Aparicio PAGER ID: [phone] MESSAGE: [id number]. Dorinda Randolph. Call me re: MRI. Aneta Hargrove [phone]
[2021-05-20] MEDS ORDERED: magnesium Cl slow-release 64mg tablet PO PRN (15:00)
[2021-05-20] MEDS ORDERED: potassium Cl 20 mEq SR tablet PO PRN (15:00)
[2021-05-20] MEDS ORDERED: magnesium 2GM in 50ml NS 50 ML IV PRN (15:00)
[2021-05-20] MEDS ORDERED: potassium CL 10mEq/100ml bag 100 ML IV PRN (15:00)
[2021-05-20] MEDS ORDERED: magnesium 4gm in 100ml NS 100 ML IV PRN (15:00)
--- NOTE | 2021-05-20 15:58 | NUR ---
Per Dr Aparicio - not able to do MRI of head d/t patient has kun and wound vac in place, right groin.
[2021-05-20] MEDS: potassium Cl 20 mEq SR tablet PO PRN (16:27)
--- NOTE | 2021-05-20 17:34 | NUR ---
Per Dr Zapata - give 500 NS bolus and recheck orthostatic vs. Addendum: 05/20/21 at 1737 by Aenta Finn RN disregard - wrong patient
[2021-05-20] MEDS ORDERED: normal saline 500ml IV soln 500 ML IV ONE (17:35)
--- NOTE | 2021-05-20 18:00 | NUR ---
Hourly roundings have been performed on patient. She moves around in bed a lot and has been repositioned multiple times throughout the shift. Family has been in the room for about 75% of the day. Pt has been pleasant all day but has had hallucinations. MD is aware. PRN Haldol if needed.
--- NOTE | 2021-05-20 18:56 | NUR ---
Problems reprioritized. Patient report given, questions answered & plan of care reviewed with ANGELITO Condon.
[2021-05-20] MEDS: K and/or MAG REPLACEMENT MC SCH (20:00)
[2021-05-20] MEDS: cyclobenzaprine 10mg tablet PO SCH (21:23)
[2021-05-21] VITALS (7 sets, daily range): BP systolic 113–158; BP diastolic 61–89
--- NOTE | 2021-05-21 01:06 | NUR ---
Potassium 40mq given at 2130. unable to change time in MAR.
[2021-05-21] MEDS: HYDROmorphone 1 mg/ml syringe IV PRN (03:07)
[2021-05-21] MEDS: potassium Cl 20 mEq SR tablet PO PRN (03:08)
[2021-05-21] MEDS: K and/or MAG REPLACEMENT MC SCH ×2 (08:00→19:55)
[2021-05-21 08:18] LABS: HEMOGLOBIN 9.1 g/dl (12.0-16.0); WHITE BLOOD COUNT 5.8 X10'3 (4.5-11.0)
[2021-05-21 08:22] LABS: HEMATOCRIT 28.5 % (35.0-45.0); MEAN CORPUSCULAR HEMOGLOBIN 29.7 PG (27.0-31.0); MEAN CORPUSCULAR VOLUME 92.7 FL (78-98); MEAN PLATELET VOLUME 8.3 FL (7.4-10.4); PLATELET COUNT 191 X10'3 (140-440); RED BLOOD COUNT 3.07 X10'6 (4.20-5.60); RED CELL DISTRIBUTION WIDTH 18.6 % (11.5-14.5)
[2021-05-21] MEDS: ESCITALOPRAM OXALATE 5 MG TABLET PO SCH (08:23)
[2021-05-21] MEDS: pantoprazole 40mg Tablet.DR PO SCH (08:23)
[2021-05-21] MEDS: heparin, porcine 5000 units/ml vial SQ SCH ×2 (08:27→20:18)
[2021-05-21] MEDS: clopidogrel 75mg tablet PO SCH (08:27)
[2021-05-21] MEDS: losartan 25mg tablet PO SCH (08:27)
[2021-05-21] MEDS: metoprolol tartrate 25mg tablet PO SCH ×2 (08:32→20:18)
[2021-05-21 08:44] LABS: ALANINE AMINOTRANSFERASE 67 U/L (12-78); ALBUMIN 2.9 G/DL (3.4-5.0); ALBUMIN/GLOBULIN RATIO 0.8 (1.1-1.5); ALKALINE PHOSPHATASE 202 IU/L (46-116); ANION GAP 8 (8-16); ASPARTATE AMINO TRANSFERASE 49 U/L (10-37); BILIRUBIN,TOTAL 0.7 MG/DL (0.1-1.0); BLOOD UREA NITROGEN 42 MG/DL (7-18); BUN/CREATININE RATIO 33.1 (6.6-38.0); CALCIUM 8.8 MG/DL (8.5-10.1); CHLORIDE 110 MMOL/L (99-107); CREATININE 1.27 MG/DL (0.40-0.90); GLUCOSE 126 MG/DL (70-104); MAGNESIUM 2.2 MG/DL (1.5-2.4); PHOSPHORUS 4.6 MG/DL (2.3-4.5); POTASSIUM 4.6 MMOL/L (3.5-5.1); SODIUM 142 MMOL/L (135-145); TOTAL CARBON DIOXIDE 23.8 MMOL/L (24-32); TOTAL PROTEIN 6.5 G/DL (6.4-8.2); eGFR 41 ML/MIN
[2021-05-21] MEDS: LEFLUNOMIDE 10 MG TABLET PO SCH (08:50)
[2021-05-21] MEDS: hydroxychloroquine 200mg tablet PO SCH (08:52)
[2021-05-21 10:04] LABS: PLATELET ESTIMATE NORMAL; TOTAL CELLS COUNTED 100
[2021-05-21 10:05] LABS: BURR CELLS 1+
[2021-05-21 10:08] LABS: ANISOCYTOSIS 2+; POLYCHROMASIA 1+
[2021-05-21] MEDS: albuterol 2.5 MG/3 ML nebule NEB PRN (10:13)
[2021-05-21 12:30] LABS: APTT 24 SECONDS (22-32)
[2021-05-21] MEDS: cyclobenzaprine 10mg tablet PO SCH (20:18)
[2021-05-22] VITALS (9 sets, daily range): BP systolic 133–192; BP diastolic 52–84
[2021-05-22] MEDS: HYDROmorphone 1 mg/ml syringe IV PRN (03:26)
[2021-05-22] MEDS: haloperidol lactate 5mg/ml inj IM PRN ×2 (03:26→23:14)
[2021-05-22 06:00] LABS: BASOPHILS # (AUTO) 0.1 X10'3 (0-0.2); BASOPHILS % (AUTO) 0.8 % (0-1); EOSINOPHILS # (AUTO) 0.3 X10'3 (0-0.9); EOSINOPHILS % (AUTO) 5.4 % (0-6); HEMATOCRIT 25.6 % (35.0-45.0); HEMOGLOBIN 8.5 g/dl (12.0-16.0); LYMPHOCYTES # (AUTO) 0.9 X10'3 (1.1-4.8); LYMPHOCYTES % (AUTO) 14.3 % (21-51); MEAN CORPUSCULAR HEMOGLOBIN 29.9 PG (27.0-31.0); MEAN CORPUSCULAR HGB CONC 33.2 g/dL (33.0-36.5); MEAN CORPUSCULAR VOLUME 90.1 FL (78-98); MEAN PLATELET VOLUME 8.1 FL (7.4-10.4); NEUTROPHILS # (AUTO) 3.8 X10'3 (1.8-7.7); NEUTROPHILS % (AUTO) 62.5 % (42-75); PLATELET COUNT 203 X10'3 (140-440); RED BLOOD COUNT 2.84 X10'6 (4.20-5.60); RED CELL DISTRIBUTION WIDTH 17.4 % (11.5-14.5); WHITE BLOOD COUNT 6.2 X10'3 (4.5-11.0)
--- NOTE | 2021-05-22 06:00 | NUR ---
Patient in room PCU 3026. I have received report from Roger (had patient yesterday) as well as maintenance technician 2nd shift nurse Roseanna. Had the opportunity to ask questions and assume patient care.
[2021-05-22 06:11] LABS: APTT 26 SECONDS (22-32)
[2021-05-22 06:23] LABS: ALANINE AMINOTRANSFERASE 56 U/L (12-78); ALBUMIN 2.8 G/DL (3.4-5.0); ALBUMIN/GLOBULIN RATIO 0.8 (1.1-1.5); ALKALINE PHOSPHATASE 207 IU/L (46-116); ANION GAP 13 (8-16); ASPARTATE AMINO TRANSFERASE 43 U/L (10-37); BILIRUBIN,TOTAL 0.8 MG/DL (0.1-1.0); BLOOD UREA NITROGEN 36 MG/DL (7-18); BUN/CREATININE RATIO 27.9 (6.6-38.0); CALCIUM 8.9 MG/DL (8.5-10.1); CHLORIDE 106 MMOL/L (99-107); CREATININE 1.29 MG/DL (0.40-0.90); GLUCOSE 99 MG/DL (70-104); PHOSPHORUS 3.1 MG/DL (2.3-4.5); POTASSIUM 4.1 MMOL/L (3.5-5.1); PREALBUMIN 11.7 MG/DL (19-36); SODIUM 142 MMOL/L (135-145); TOTAL CARBON DIOXIDE 23.1 MMOL/L (24-32); TOTAL PROTEIN 6.3 G/DL (6.4-8.2); eGFR 40 ML/MIN
[2021-05-22] MEDS: K and/or MAG REPLACEMENT MC SCH ×2 (07:41→19:39)
[2021-05-22] MEDS: heparin, porcine 5000 units/ml vial SQ SCH ×2 (08:53→20:07)
[2021-05-22] MEDS: clopidogrel 75mg tablet PO SCH (08:53)
[2021-05-22] MEDS: ESCITALOPRAM OXALATE 5 MG TABLET PO SCH (08:54)
[2021-05-22] MEDS: metoprolol tartrate 25mg tablet PO SCH ×2 (08:54→20:07)
[2021-05-22] MEDS: hydroxychloroquine 200mg tablet PO SCH (08:55)
[2021-05-22] MEDS: pantoprazole 40mg Tablet.DR PO SCH (08:55)
--- NOTE | 2021-05-22 08:57 | NUR ---
Reassessment: Pt now on Regular diet since 05/21, previously on Renal diet w/ avg intake 60% x 10 meals partially meeting needs. Pt noted to continue to have hallucinations and is mostly A&O x 2 w/ feeder needed likely r/t mentation. Pt could also benefit from Ensure Enlive BID to help meet nutrient needs and assist w/ wound healing. [facility] 05/18 w/ no bowel care. Will continue to monitor. Recommendations: 1) Continue Renal diet; encourage PO 2) Ensure Enlive BIDBD; pending MD verification 3) Routine bowel care 4) Weekly scaled wts Addendum: 05/22/21 at [address] Amended: Links added.
[2021-05-22] MEDS: losartan 25mg tablet PO SCH (08:58)
[2021-05-22] MEDS: LEFLUNOMIDE 10 MG TABLET PO SCH (09:12)
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
[2021-05-22] MEDS ORDERED: HYDROcodone/acetaminophen 5mg/325mg tablet PO PRN (11:20)
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
[2021-05-22] MEDS: albuterol 2.5 MG/3 ML nebule NEB PRN (15:16)
--- NOTE | 2021-05-22 17:21 | NUR ---
PAGER ID: [phone] MESSAGE: [phone]. I AM PLACING A SITTER ORDER FOR 3026B, THE PATIENT HAD FALLEN EARLIER TODAY AND THE ROOMATE DISCHARGED WHO HAD THE SITTER ORDER. THANK YOU.
[2021-05-22] MEDS: lactose-reduced food (Ensure Enlive) - 237ml bottle PO SCH (17:30)
--- NOTE | 2021-05-23 | NUR ---
Patient extremely irritated kicking at staff, yelling and attempting to get out of bed with sitter present. BP is elevated due to anxiousness. Paged manager non profit. explained Haldol given but patient is still extremely irritated. order for 10mg IM Geodon PRN. Medication effective. patient is resting quietly. vitals stable.
[2021-05-23] MEDS ORDERED: ziprasidone IM 20mg inj **IM only IM PRN (00:20)
[2021-05-23 02:00] VITALS: BP 159/76
[2021-05-23 06:00] VITALS: BP 168/79
[2021-05-23] MEDS: hydroxychloroquine 200mg tablet PO SCH (08:00)
[2021-05-23] MEDS: K and/or MAG REPLACEMENT MC SCH ×2 (08:00→19:56)
[2021-05-23 08:25] LABS: APTT 26 SECONDS (22-32)
[2021-05-23 08:34] LABS: ALANINE AMINOTRANSFERASE 55 U/L (12-78); ALBUMIN 2.9 G/DL (3.4-5.0); ALBUMIN/GLOBULIN RATIO 0.8 (1.1-1.5); ALKALINE PHOSPHATASE 228 IU/L (46-116); ANION GAP 12 (8-16); ASPARTATE AMINO TRANSFERASE 59 U/L (10-37); BLOOD UREA NITROGEN 32 MG/DL (7-18); BUN/CREATININE RATIO 26.4 (6.6-38.0); CALCIUM 8.9 MG/DL (8.5-10.1); CHLORIDE 110 MMOL/L (99-107); CREATININE 1.21 MG/DL (0.40-0.90); GLUCOSE 100 MG/DL (70-104); POTASSIUM 4.4 MMOL/L (3.5-5.1); SODIUM 143 MMOL/L (135-145); TOTAL CARBON DIOXIDE 21.1 MMOL/L (24-32); TOTAL PROTEIN 6.6 G/DL (6.4-8.2); TRIGLYCERIDES 127 MG/DL (20-135); eGFR 43 ML/MIN
[2021-05-23] MEDS: ESCITALOPRAM OXALATE 5 MG TABLET PO SCH (08:34)
[2021-05-23] MEDS: clopidogrel 75mg tablet PO SCH (08:35)
[2021-05-23] MEDS: pantoprazole 40mg Tablet.DR PO SCH (08:36)
[2021-05-23] MEDS: losartan 25mg tablet PO SCH (08:36)
[2021-05-23] MEDS: metoprolol tartrate 25mg tablet PO SCH ×2 (08:36→20:45)
[2021-05-23] MEDS: LEFLUNOMIDE 10 MG TABLET PO SCH (08:37)
[2021-05-23] MEDS: heparin, porcine 5000 units/ml vial SQ SCH ×2 (08:38→20:45)
[2021-05-23 10:31] LABS: ALDOSTERONE 4.3 ng/dL (0.0-30.0)
[2021-05-23 10:34] LABS: BASOPHILS # (AUTO) 0.1 X10'3 (0-0.2); BASOPHILS % (AUTO) 0.7 % (0-1); EOSINOPHILS # (AUTO) 0.1 X10'3 (0-0.9); EOSINOPHILS % (AUTO) 1.5 % (0-6); HEMOGLOBIN 9.1 g/dl (12.0-16.0); LYMPHOCYTES # (AUTO) 0.8 X10'3 (1.1-4.8); MEAN CORPUSCULAR HEMOGLOBIN 30.2 PG (27.0-31.0); MEAN CORPUSCULAR HGB CONC 32.6 g/dL (33.0-36.5); MEAN CORPUSCULAR VOLUME 92.7 FL (78-98); MEAN PLATELET VOLUME 7.7 FL (7.4-10.4); MONOCYTES # (AUTO) 1.1 X10'3 (0-0.9); MONOCYTES % (AUTO) 13.9 % (2-12); NEUTROPHILS # (AUTO) 6.1 X10'3 (1.8-7.7); NEUTROPHILS % (AUTO) 73.9 % (42-75); PLATELET COUNT 223 X10'3 (140-440); RED BLOOD COUNT 3.02 X10'6 (4.20-5.60); WHITE BLOOD COUNT 8.2 X10'3 (4.5-11.0)
[2021-05-23 11:00] VITALS: BP 132/77
[2021-05-23 15:00] VITALS: BP 144/74
--- NOTE | 2021-05-23 15:36 | NUR ---
Nursing reports NPWT malfunction. In at the bedside for assessment. The right groin dressing to the Prevena foam placement appears to have been reinforced, no leak noted at this time and the NPWT machine appears to be functioning running at -125mmHg with no noted exudate in the collection canister. Nursing states that they reinforced the dressing with a tegaderm. It was relayed to nursing that orders were placed on 05/22/21 to call the surgeon for directions concerning removal. The patient was left in the care of the sitter. Addendum: 05/23/21 at 1545 by Venus Hancock RN Amended: Links added.
[2021-05-23] MEDS: lactose-reduced food (Ensure Enlive) - 237ml bottle PO SCH (17:30)
[2021-05-23 18:00] VITALS: BP 168/84
[2021-05-23 22:00] VITALS: BP 157/47
[2021-05-24 02:00] VITALS: BP 131/76
--- NOTE | 2021-05-24 04:28 | NUR ---
1800 pulse 78, not 20. unable to change in chart.
[2021-05-24 06:00] VITALS: BP 160/64
[2021-05-24 07:33] LABS: BASOPHILS % (AUTO) 0.5 % (0-1); EOSINOPHILS # (AUTO) 0.2 X10'3 (0-0.9); EOSINOPHILS % (AUTO) 2.9 % (0-6); HEMATOCRIT 27.2 % (35.0-45.0); HEMOGLOBIN 8.7 g/dl (12.0-16.0); LYMPHOCYTES # (AUTO) 0.8 X10'3 (1.1-4.8); LYMPHOCYTES % (AUTO) 9.7 % (21-51); MEAN CORPUSCULAR HEMOGLOBIN 30.2 PG (27.0-31.0); MEAN CORPUSCULAR HGB CONC 32.2 g/dL (33.0-36.5); MEAN CORPUSCULAR VOLUME 93.8 FL (78-98); MEAN PLATELET VOLUME 7.6 FL (7.4-10.4); MONOCYTES # (AUTO) 1.1 X10'3 (0-0.9); NEUTROPHILS # (AUTO) 6.1 X10'3 (1.8-7.7); NEUTROPHILS % (AUTO) 73.9 % (42-75); PLATELET COUNT 254 X10'3 (140-440); RED BLOOD COUNT 2.89 X10'6 (4.20-5.60); RED CELL DISTRIBUTION WIDTH 18.1 % (11.5-14.5); WHITE BLOOD COUNT 8.2 X10'3 (4.5-11.0)
[2021-05-24 07:43] LABS: APTT 27 SECONDS (22-32)
[2021-05-24 07:58] LABS: ALANINE AMINOTRANSFERASE 52 U/L (12-78); ALBUMIN 2.8 G/DL (3.4-5.0); ALBUMIN/GLOBULIN RATIO 0.8 (1.1-1.5); ALKALINE PHOSPHATASE 246 IU/L (46-116); ANION GAP 11 (8-16); ASPARTATE AMINO TRANSFERASE 55 U/L (10-37); BILIRUBIN,TOTAL 0.7 MG/DL (0.1-1.0); BLOOD UREA NITROGEN 32 MG/DL (7-18); BUN/CREATININE RATIO 26.7 (6.6-38.0); CALCIUM 8.8 MG/DL (8.5-10.1); CHLORIDE 110 MMOL/L (99-107); GLUCOSE 132 MG/DL (70-104); PHOSPHORUS 4.3 MG/DL (2.3-4.5); POTASSIUM 4.2 MMOL/L (3.5-5.1); SODIUM 144 MMOL/L (135-145); TOTAL CARBON DIOXIDE 22.6 MMOL/L (24-32); TOTAL PROTEIN 6.4 G/DL (6.4-8.2); eGFR 43 ML/MIN
[2021-05-24] MEDS: K and/or MAG REPLACEMENT MC SCH ×2 (08:00→20:00)
[2021-05-24] MEDS: LEFLUNOMIDE 10 MG TABLET PO SCH (08:41)
[2021-05-24] MEDS: metoprolol tartrate 25mg tablet PO SCH ×2 (08:41→20:16)
[2021-05-24] MEDS: ESCITALOPRAM OXALATE 5 MG TABLET PO SCH (08:41)
[2021-05-24] MEDS: losartan 25mg tablet PO SCH (08:42)
[2021-05-24] MEDS: heparin, porcine 5000 units/ml vial SQ SCH ×2 (08:42→20:16)
[2021-05-24] MEDS: pantoprazole 40mg Tablet.DR PO SCH (08:42)
[2021-05-24] MEDS: clopidogrel 75mg tablet PO SCH (08:43)
[2021-05-24] MEDS: hydroxychloroquine 200mg tablet PO SCH (08:43)
[2021-05-24 11:00] VITALS: BP 124/60
--- NOTE | 2021-05-24 14:37 | NUR ---
WOUND INFECTION EDUCATION PROVIDED BY WOUND CARE 1. Patient instructed to call their primary doctor, or go the ED immediately if any of the following symptoms occur: * Increased pain in wound * Increase in drainage from the wound * Redness in the skin surrounding the wound * Warmth in the skin surrounding the wound * Bleeding from the wound * Temperature of 101 or greater 2. If any of these occur while in the hospital tell a nurse immediately. Addendum: 05/24/21 at 1438 by Venus Hancock RN Amended: Links added.
[2021-05-24 17:13] LABS: RENIN, PLASMA 0.228 ng/mL/hr (0.167-5.380)
[2021-05-24] MEDS: lactose-reduced food (Ensure Enlive) - 237ml bottle PO SCH (17:30)
[2021-05-24 18:00] VITALS: BP 144/87
[2021-05-24 18:06] LABS: CLARITY,URINE CLOUDY (Clear); COLOR,URINE YELLOW (Yellow); GLUCOSE, URINE NEGATIVE (Neg); KETONES,URINE NEGATIVE (Neg); LEUKOCYTE ESTERASE ,URINE NEGATIVE (Neg); NITRITES, URINE NEGATIVE (Neg); OCCULT BLOOD,URINE NEGATIVE (Neg); PH,URINE 5.5 (4.8-8.0); PROTEIN,URINE NEGATIVE (Neg); UROBILINOGEN,URINE 0.2 E.U/dL (0.2-1.0)
[2021-05-24 18:19] LABS: SQUAMOUS EPITHELIAL CELL,UR MANY /LPF (FEW); UA COLLECTION TYPE NON-SPECIFIED; URIC ACID CRYSTALS 4+ /HPF (NEGATIVE)
[2021-05-24 18:32] LABS: BACTERIA,URINE 2+ /HPF (Neg); RBC,URINE 0-2 /HPF (0-2); WBC,URINE 0-4 /HPF (0-4)
[2021-05-24] MEDS: HYDROcodone/acetaminophen 10/325mg tab PO PRN (20:17)
[2021-05-24 22:00] VITALS: BP 165/77
[2021-05-25 02:00] VITALS: BP 170/71
--- NOTE | 2021-05-25 02:00 | NUR ---
Patient found on her buttocks by nurse, sitting upright. Patient before found on floor was sitting on bedside commode. Patient baseline is confused and anxious. No noted bruises on skin. Vitals stable. On-call provider paged X2. Order for CT with no contrast put in per protocol for unwitnessed fall. Will continue to monitor.
[2021-05-25 03:00] VITALS: BP 161/68
[2021-05-25 06:00] VITALS: BP 184/85
[2021-05-25 06:15] LABS: APTT 25 SECONDS (22-32)
[2021-05-25 06:31] LABS: BASOPHILS % (AUTO) 0.7 % (0-1); EOSINOPHILS # (AUTO) 0.2 X10'3 (0-0.9); HEMATOCRIT 27.8 % (35.0-45.0); LYMPHOCYTES # (AUTO) 0.6 X10'3 (1.1-4.8); LYMPHOCYTES % (AUTO) 9.3 % (21-51); MEAN CORPUSCULAR HEMOGLOBIN 30.2 PG (27.0-31.0); MEAN CORPUSCULAR HGB CONC 32.5 g/dL (33.0-36.5); MEAN CORPUSCULAR VOLUME 92.9 FL (78-98); MEAN PLATELET VOLUME 7.5 FL (7.4-10.4); MONOCYTES # (AUTO) 0.4 X10'3 (0-0.9); MONOCYTES % (AUTO) 5.5 % (2-12); NEUTROPHILS # (AUTO) 5.6 X10'3 (1.8-7.7); NEUTROPHILS % (AUTO) 81.5 % (42-75); PLATELET COUNT 276 X10'3 (140-440); RED BLOOD COUNT 2.99 X10'6 (4.20-5.60); RED CELL DISTRIBUTION WIDTH 17.8 % (11.5-14.5); WHITE BLOOD COUNT 6.9 X10'3 (4.5-11.0)
[2021-05-25 06:36] LABS: ALANINE AMINOTRANSFERASE 62 U/L (12-78); ALBUMIN 2.9 G/DL (3.4-5.0); ALBUMIN/GLOBULIN RATIO 0.8 (1.1-1.5); ALKALINE PHOSPHATASE 261 IU/L (46-116); ANION GAP 11 (8-16); ASPARTATE AMINO TRANSFERASE 96 U/L (10-37); BILIRUBIN,TOTAL 0.8 MG/DL (0.1-1.0); BLOOD UREA NITROGEN 30 MG/DL (7-18); BUN/CREATININE RATIO 24.2 (6.6-38.0); CALCIUM 8.8 MG/DL (8.5-10.1); CHLORIDE 110 MMOL/L (99-107); CREATININE 1.24 MG/DL (0.40-0.90); GLUCOSE 110 MG/DL (70-104); PHOSPHORUS 4.6 MG/DL (2.3-4.5); POTASSIUM 4.3 MMOL/L (3.5-5.1); PREALBUMIN 11.3 MG/DL (19-36); SODIUM 142 MMOL/L (135-145); TOTAL CARBON DIOXIDE 20.9 MMOL/L (24-32); TOTAL PROTEIN 6.4 G/DL (6.4-8.2); eGFR 42 ML/MIN
[2021-05-25] MEDS: K and/or MAG REPLACEMENT MC SCH ×2 (08:00→20:00)
[2021-05-25] MEDS: metoprolol tartrate 25mg tablet PO SCH ×2 (08:13→20:10)
[2021-05-25] MEDS: pantoprazole 40mg Tablet.DR PO SCH (08:16)
[2021-05-25] MEDS: clopidogrel 75mg tablet PO SCH (08:16)
[2021-05-25] MEDS: losartan 25mg tablet PO SCH (08:16)
[2021-05-25] MEDS: LEFLUNOMIDE 10 MG TABLET PO SCH (08:17)
[2021-05-25] MEDS: ESCITALOPRAM OXALATE 5 MG TABLET PO SCH (08:20)
[2021-05-25] MEDS: heparin, porcine 5000 units/ml vial SQ SCH ×2 (08:22→20:10)
[2021-05-25] MEDS: hydroxychloroquine 200mg tablet PO SCH (08:29)
--- NOTE | 2021-05-25 10:01 | NUR ---
Reassessment: Patient remains A/O x 1 and with a sitter at bedside per EMR. Pt documented to be receiving moderate assistance with meals and PO intake has significantly improved with up to mostly 75% PO intake of meals. Noted pt now receiving an Ensure Enlive BIDBD though only documentation of ONS acceptance is for dinner of which pt averaging 50% PO intake. Overall pt meeting estimated nutrient needs at this time. Noted pt has still been receiving renal meal trays despite new diet order 05/21 for regular diet. D/w dietary to send appropriate diet order per rx. LBM 05/24 per I&O. No further nutrition intervention implemented at this time. Will continue to follow. Recommendations: 1) Continue regular diet 2) Ensure Enlive BIDBD 3) Encourage PO intake and assist with meals 4) Routine bowel care 5) Weekly scaled wts Addendum: 05/25/21 at [address] Amended: Links added.
[2021-05-25] MEDS: amLODIPine 5mg tablet PO SCH (10:28)
[2021-05-25 11:00] VITALS: BP 121/76
[2021-05-25] MEDS: lactose-reduced food (Ensure Enlive) - 237ml bottle PO SCH (17:30)
[2021-05-25 18:00] VITALS: BP 174/80
[2021-05-25] MEDS: HYDROcodone/acetaminophen 10/325mg tab PO PRN (20:10)
[2021-05-25 22:00] VITALS: BP 107/84
[2021-05-26 02:00] VITALS: BP 194/81
[2021-05-26] MEDS: hydrALAZINE 20mg/ml inj. IV PRN (04:03)
--- NOTE | 2021-05-26 05:50 | NUR ---
surgical site draining serous looking fluid. Pham intact, re-dressed site. No complaints of pain.
[2021-05-26 06:21] LABS: BASOPHILS # (AUTO) 0.1 X10'3 (0-0.2); BASOPHILS % (AUTO) 0.9 % (0-1); EOSINOPHILS # (AUTO) 0.3 X10'3 (0-0.9); EOSINOPHILS % (AUTO) 3.6 % (0-6); HEMATOCRIT 27.4 % (35.0-45.0); HEMOGLOBIN 8.9 g/dl (12.0-16.0); LYMPHOCYTES % (AUTO) 11.9 % (21-51); MEAN CORPUSCULAR HEMOGLOBIN 29.9 PG (27.0-31.0); MEAN CORPUSCULAR HGB CONC 32.5 g/dL (33.0-36.5); MEAN CORPUSCULAR VOLUME 91.9 FL (78-98); MEAN PLATELET VOLUME 7.6 FL (7.4-10.4); MONOCYTES # (AUTO) 0.4 X10'3 (0-0.9); MONOCYTES % (AUTO) 5.2 % (2-12); NEUTROPHILS # (AUTO) 6.4 X10'3 (1.8-7.7); NEUTROPHILS % (AUTO) 78.4 % (42-75); PLATELET COUNT 295 X10'3 (140-440); RED BLOOD COUNT 2.99 X10'6 (4.20-5.60); RED CELL DISTRIBUTION WIDTH 17.4 % (11.5-14.5); WHITE BLOOD COUNT 8.2 X10'3 (4.5-11.0)
[2021-05-26 06:22] LABS: APTT 28 SECONDS (22-32)
[2021-05-26 06:45] LABS: ALANINE AMINOTRANSFERASE 80 U/L (12-78); ALBUMIN 2.8 G/DL (3.4-5.0); ALBUMIN/GLOBULIN RATIO 0.8 (1.1-1.5); ALKALINE PHOSPHATASE 311 IU/L (46-116); ANION GAP 13 (8-16); ASPARTATE AMINO TRANSFERASE 119 U/L (10-37); BILIRUBIN,TOTAL 0.8 MG/DL (0.1-1.0); BLOOD UREA NITROGEN 29 MG/DL (7-18); BUN/CREATININE RATIO 23.2 (6.6-38.0); CHLORIDE 106 MMOL/L (99-107); CREATININE 1.25 MG/DL (0.40-0.90); GLUCOSE 104 MG/DL (70-104); PHOSPHORUS 3.4 MG/DL (2.3-4.5); POTASSIUM 4.1 MMOL/L (3.5-5.1); SODIUM 141 MMOL/L (135-145); TOTAL CARBON DIOXIDE 22.4 MMOL/L (24-32); TOTAL PROTEIN 6.3 G/DL (6.4-8.2); eGFR 41 ML/MIN
[2021-05-26 07:09] VITALS: BP 155/62
[2021-05-26] MEDS: LEFLUNOMIDE 10 MG TABLET PO SCH (07:34)
[2021-05-26] MEDS: hydroxychloroquine 200mg tablet PO SCH (07:34)
[2021-05-26] MEDS: amLODIPine 5mg tablet PO SCH (07:34)
[2021-05-26] MEDS: pantoprazole 40mg Tablet.DR PO SCH (07:35)
[2021-05-26] MEDS: losartan 25mg tablet PO SCH (07:35)
[2021-05-26] MEDS: metoprolol tartrate 25mg tablet PO SCH (07:36)
[2021-05-26] MEDS: heparin, porcine 5000 units/ml vial SQ SCH (07:36)
[2021-05-26] MEDS: clopidogrel 75mg tablet PO SCH (07:36)
[2021-05-26] MEDS: ESCITALOPRAM OXALATE 5 MG TABLET PO SCH (07:36)
[2021-05-26] MEDS: lactose-reduced food (Ensure Enlive) - 237ml bottle PO SCH (07:44)
[2021-05-26] MEDS: K and/or MAG REPLACEMENT MC SCH (08:00)
--- NOTE | 2021-05-26 09:55 | NUR ---
pt does not have a sitter. a/o x4. follows commands.
[2021-05-26] MEDS ORDERED: LOSA25TA41 PO (11:22)
[2021-05-26] MEDS ORDERED: LOP25T PO (11:22)
[2021-05-26] MEDS ORDERED: HYDR-4070 PO (11:22)
[2021-05-26 11:27] VITALS: BP 138/85
--- NOTE | 2021-05-26 13:10 | NUR ---
PT DC'D TO [facility]. VSS, NEURO INTACT, RA, LEFT FA 20G PIV DC'D TIP INTACT. FAMILY WITH PT BELONGINGS.
[2021-05-30] MEDS ORDERED: LOSA100T57 PO (12:55)
[2021-05-30] MEDS ORDERED: METO100T14 PO (12:55)
[2021-05-30] MEDS ORDERED: HYDR-4070 PO (12:58)
[2021-05-30] MEDS ORDERED: PANT-47 PO (18:27)
[2021-05-30] MEDS ORDERED: CYCL-394 PO (18:27)
[2021-05-30] MEDS ORDERED: ESCI5TAB PO (18:27)
[2021-05-30] MEDS ORDERED: CLOP75TA33 PO (18:27)
[2021-05-30] MEDS ORDERED: DULO40CA7 PO (18:27)
[2021-05-30] MEDS ORDERED: NIFE90TA44 PO (18:27)
[2021-05-30] MEDS ORDERED: AMLO5TAB PO (18:27)
[2021-05-30] MEDS ORDERED: IPRA3AMP31 IH (18:27)
== END 2021-05-26 13:11 | DRG 673 ==
LOC: ER 20:17 → ED HOLD 05-15 02:11 → CICU 2S 05-15 03:53 → PCU 3S 05-19 12:28
PROVIDERS: ADMIT Internal Medicine; ATTEND Internal Medicine
PROC: B32T1ZZ Computerized Tomography (CT Scan) of Left Pulmonary Artery using Low Osmolar Contrast (ICD-10-PCS; 2021-05-14)
PROC: B3201ZZ Computerized Tomography (CT Scan) of Thoracic Aorta using Low Osmolar Contrast (ICD-10-PCS; 2021-05-14)
PROC: B32S1ZZ Computerized Tomography (CT Scan) of Right Pulmonary Artery using Low Osmolar Contrast (ICD-10-PCS; 2021-05-14)
PROC: B4201ZZ Computerized Tomography (CT Scan) of Abdominal Aorta using Low Osmolar Contrast (ICD-10-PCS; 2021-05-14)
PROC: B4241ZZ Computerized Tomography (CT Scan) of Superior Mesenteric Artery using Low Osmolar Contrast (ICD-10-PCS; 2021-05-14)
PROC: B4281ZZ Computerized Tomography (CT Scan) of Bilateral Renal Arteries using Low Osmolar Contrast (ICD-10-PCS; 2021-05-14)
PROC: B4211ZZ Computerized Tomography (CT Scan) of Celiac Artery using Low Osmolar Contrast (ICD-10-PCS; 2021-05-14)
PROC: 04QH0ZZ Repair Right External Iliac Artery, Open Approach (ICD-10-PCS; 2021-05-15)
PROC: 30233N1 Transfusion of Nonautologous Red Blood Cells into Peripheral Vein, Percutaneous Approach (ICD-10-PCS; 2021-05-15)
PROC: B4171ZZ Fluoroscopy of Left Renal Artery using Low Osmolar Contrast (ICD-10-PCS; 2021-05-15)
PROC: B41F1ZZ Fluoroscopy of Right Lower Extremity Arteries using Low Osmolar Contrast (ICD-10-PCS; 2021-05-15)
PROC: B41G1ZZ Fluoroscopy of Left Lower Extremity Arteries using Low Osmolar Contrast (ICD-10-PCS; 2021-05-15)
PROC: 02HV33Z Insertion of Infusion Device into Superior Vena Cava, Percutaneous Approach (ICD-10-PCS; 2021-05-15)
PROC: 5A1945Z Respiratory Ventilation, 24-96 Consecutive Hours (ICD-10-PCS; 2021-05-15)
PROC: 0BH17EZ Insertion of Endotracheal Airway into Trachea, Via Natural or Artificial Opening (ICD-10-PCS; 2021-05-15)
PROC: 047A3ZZ Dilation of Left Renal Artery, Percutaneous Approach (ICD-10-PCS; principal; 2021-05-15 18:10)
PROC: 5A09357 Assistance with Respiratory Ventilation, Less than 24 Consecutive Hours, Continuous Positive Airway Pressure (ICD-10-PCS; 2021-05-17)
PROC: 4A10X4Z Monitoring of Central Nervous Electrical Activity, External Approach (ICD-10-PCS; 2021-05-22)
DX: I70.1 Atherosclerosis of renal artery (principal); I71.01 Dissection of thoracic aorta; N17.0 Acute kidney failure with tubular necrosis; J18.9 Pneumonia, unspecified organism; I21.4 Non-ST elevation (NSTEMI) myocardial infarction; J96.00 Acute respiratory failure, unspecified whether with hypoxia or hypercapnia; G93.41 Metabolic encephalopathy; I16.1 Hypertensive emergency; F05 Delirium due to known physiological condition; M34.1 CR(E)ST syndrome; N18.30 Chronic kidney disease, stage 3 unspecified; D64.9 Anemia, unspecified; M32.9 Systemic lupus erythematosus, unspecified; M06.9 Rheumatoid arthritis, unspecified; I12.9 Hypertensive chronic kidney disease with stage 1 through stage 4 chronic kidney disease, or unspecified chronic kidney disease; Z20.822 Contact with and (suspected) exposure to COVID-19; Z96.659 Presence of unspecified artificial knee joint; I72.4 Aneurysm of artery of lower extremity; N14.1 Nephropathy induced by other drugs, medicaments and biological substances; I99.8 Other disorder of circulatory system; G89.29 Other chronic pain; M54.9 Dorsalgia, unspecified; R44.1 Visual hallucinations; R94.01 Abnormal electroencephalogram [EEG]; T50.8X5A Adverse effect of diagnostic agents, initial encounter; Z82.41 Family history of sudden cardiac death; Z82.49 Family history of ischemic heart disease and other diseases of the circulatory system; Z83.3 Family history of diabetes mellitus; Z90.49 Acquired absence of other specified parts of digestive tract; Z90.710 Acquired absence of both cervix and uterus; Z79.899 Other long term (current) drug therapy; S30.1XXA Contusion of abdominal wall, initial encounter; R45.1 Restlessness and agitation
CPT/HCPCS: 36251; 36410; 36415; 36430; 36600; 37246; 70450; 71045; 71275; 74175; 76937; 80053; 80061; 81001; 82088; 82570; 82803; 82948; 83605; 83735; 83835; 83880; 84100; 84134; 84156; 84244; 84443; 84478; 84484; 85007; 85008; 85018; 85025; 85379; 85384; 85610; 85651; 85730; 86140; 86885; 86900; 86901; 86920; 87040; 87081; 87088; 87635; 93005; 93306; 93880; 93975; 94002; 94003; 94640; 94760; 94799; 95816; 97110; 97116; 97161; 97530; 99152; 99153; 99291; A4618; A6213; A7000; C1725; C1760; C1769; C1894; C9803; G0378; J0360; J0692; J1170; J1200; J1630; J1644; J1940; J2250; J2270; J2704; J3010; J3370; J3480; J3486; J3490; J7040; J7120; J8610; P9016; P9045; Q9967

== ENCOUNTER 2023-04-14 10:42 | Inpatient (IN) | payer MEDICARE ==
[~2023-04-14] VITALS: Ht 162.6 cm; Wt 60.9 kg
[~2023-04-14 10:42] MED LIST changes: +CLOP75TA33 PO; -DULO-31 PO; +DULO40CA7 PO; +ESCI5TAB PO; -EST1T PO; -FOLI1TAB27 PO; +HYDR200T73 PO; -HYDR200T84 PO; +IPRA3AMP31 IH; +LEFL10TA20 PO; -MULT-620 PO; -MULT-933 PO; -NAPR220C15 PO; -OMEP40CA21 PO; +PANT-47 PO; -TRAM50TA2 PO
[2023-04-14 12:00] LABS: BASOPHILS # (AUTO) 0.1 X10'3 (0-0.2); BASOPHILS % (AUTO) 0.7 % (0-1); EOSINOPHILS # (AUTO) 0.1 X10'3 (0-0.9); EOSINOPHILS % (AUTO) 1.2 % (0-6); HEMATOCRIT 34.9 % (35.0-45.0); HEMOGLOBIN 11.3 g/dl (12.0-16.0); LYMPHOCYTES % (AUTO) 13.3 % (21-51); MEAN CORPUSCULAR HEMOGLOBIN 31.7 PG (27.0-31.0); MEAN CORPUSCULAR HGB CONC 32.4 g/dL (33.0-36.5); MEAN CORPUSCULAR VOLUME 98.1 FL (78-98); MEAN PLATELET VOLUME 8.8 FL (7.4-10.4); MONOCYTES % (AUTO) 12.9 % (2-12); NEUTROPHILS # (AUTO) 5.5 X10'3 (1.8-7.7); NEUTROPHILS % (AUTO) 71.9 % (42-75); PLATELET COUNT 232 X10'3 (140-440); RED BLOOD COUNT 3.56 X10'6 (4.20-5.60); RED CELL DISTRIBUTION WIDTH 14.1 % (11.5-14.5); WHITE BLOOD COUNT 7.6 X10'3 (4.5-11.0)
[2023-04-14 12:21] LABS: ALBUMIN 3.4 G/DL (3.4-5.0); ANION GAP 14 (8-16); BLOOD UREA NITROGEN 44 MG/DL (7-18); BUN/CREATININE RATIO 29.9 (10.0-20.0); CALCIUM 8.6 MG/DL (8.5-10.1); CHLORIDE 107 MMOL/L (99-107); CREATININE 1.47 MG/DL (0.40-0.90); GLUCOSE 126 MG/DL (70-104); POTASSIUM 4.3 MMOL/L (3.5-5.1); PRO BRAIN NATRIURETIC PEPTIDE 1082 PG/ML (0-450); SODIUM 145 MMOL/L (135-145); TOTAL CARBON DIOXIDE 24.4 MMOL/L (24-32); eCRCL 27 ML/MIN; eGFR 34 ML/MIN
[2023-04-14] MEDS: aspirin 81mg tab.chew PO ONE (13:15)
[2023-04-14] MEDS ORDERED: mag hydrox/Alum hydrox/simeth 30ml oral suspension PO PRN (13:40)
[2023-04-14] MEDS ORDERED: potassium Cl 40MEQ/1/2NS 520ml 520 ML IV PRN (13:40)
[2023-04-14] MEDS ORDERED: magnesium 4gm in 100ml NS 100 ML IV PRN (13:40)
[2023-04-14] MEDS ORDERED: potassium Cl 20 mEq SR tablet PO PRN ×2 (13:40)
[2023-04-14] MEDS ORDERED: magnesium 2GM in 50ml NS 50 ML IV PRN (13:40)
[2023-04-14] MEDS ORDERED: acetaminophen 325mg tablet PO PRN (13:40)
[2023-04-14] MEDS ORDERED: ondansetron/PF 4mg/2ml inj IV PRN (13:40)
[2023-04-14 14:07] LABS: APTT 27 SECONDS (22-32); PROTHROMBIN TIME 10.7 SECONDS (9.0-12.0)
[2023-04-14] MEDS: normal saline 1000ml 1,000 ML IV SCH (14:32)
[2023-04-14 18:08] VITALS: BP 129/64; PULSE 83; RESP 18; TEMP 97.7; O2SAT 100
[2023-04-14 18:53] VITALS: BP 135/69; PULSE 85; RESP 19; TEMP 98; O2SAT 96
[2023-04-14] MEDS: K and/or MAG REPLACEMENT MC SCH (19:01)
[2023-04-14] MEDS: docusate sod 100mg capsule PO SCH (19:14)
[2023-04-14 20:00] VITALS: BP_SYST 116; BP_SYST 121; BP_SYST 96; BP_DIAS 47; BP_DIAS 49; BP_DIAS 58; PULSE 100; PULSE 109; PULSE 92; RESP 18; O2SAT 95
[2023-04-14 22:00] VITALS: BP 131/60; PULSE 90; RESP 16; TEMP 98.2; O2SAT 98
[2023-04-15] VITALS (8 sets, daily range): BP systolic 103–190; BP diastolic 42–94; PULSE 83–108; RESP 14–20; TEMP 97.8–98.7; O2SAT 98–99
[2023-04-15] MEDS: acetaminophen 325mg tablet PO PRN (03:22)
[2023-04-15] MEDS: HYDROcodone/acetaminophen 5mg/325mg tablet PO PRN (05:27)
[2023-04-15 07:43] LABS: BASOPHILS % (AUTO) 0.8 % (0-1); EOSINOPHILS # (AUTO) 0.2 X10'3 (0-0.9); EOSINOPHILS % (AUTO) 2.9 % (0-6); HEMATOCRIT 33.3 % (35.0-45.0); HEMOGLOBIN 10.7 g/dl (12.0-16.0); LYMPHOCYTES % (AUTO) 17.8 % (21-51); MEAN CORPUSCULAR HEMOGLOBIN 31.9 PG (27.0-31.0); MEAN CORPUSCULAR HGB CONC 32.3 g/dL (33.0-36.5); MEAN CORPUSCULAR VOLUME 98.8 FL (78-98); MEAN PLATELET VOLUME 9.4 FL (7.4-10.4); MONOCYTES # (AUTO) 0.7 X10'3 (0-0.9); MONOCYTES % (AUTO) 13.1 % (2-12); NEUTROPHILS # (AUTO) 3.7 X10'3 (1.8-7.7); NEUTROPHILS % (AUTO) 65.4 % (42-75); PLATELET COUNT 192 X10'3 (140-440); RED BLOOD COUNT 3.37 X10'6 (4.20-5.60); RED CELL DISTRIBUTION WIDTH 14.3 % (11.5-14.5); WHITE BLOOD COUNT 5.6 X10'3 (4.5-11.0)
[2023-04-15] MEDS: fludrocortisone acetate 0.1mg tablet PO SCH (08:52)
[2023-04-15] MEDS: HYDROcodone/acetaminophen 10/325mg tab PO PRN (08:52)
[2023-04-15] MEDS ORDERED: DULO30CA52 PO (10:36)
[2023-04-15] MEDS ORDERED: METO-384 PO (10:36)
[2023-04-15] MEDS ORDERED: LOSA50TA64 PO (10:36)
[2023-04-15] MEDS ORDERED: HYDR-3964 PO (10:36)
[2023-04-15] MEDS ORDERED: AMLO2.5T5 PO (10:36)
[2023-04-15] MEDS ORDERED: GABA-530 PO (10:36)
[2023-04-15] MEDS ORDERED: TOLT2CAP21 PO (10:36)
[2023-04-15] MEDS ORDERED: FURO20TA4 PO (10:36)
[2023-04-15] MEDS ORDERED: HYDR50TA46 PO (10:36)
[2023-04-15] MEDS ORDERED: HYDR200T73 PO (11:38)
[2023-04-15] MEDS: fludrocortisone acetate 0.1mg tablet PO ONE (12:16)
[2023-04-15] MEDS ORDERED: duloxetine 30mg CAPSULE.DR PO PRN (12:35)
[2023-04-15 13:55] LABS: ALANINE AMINOTRANSFERASE 19 U/L (12-78); ALBUMIN 3.2 G/DL (3.4-5.0); ALBUMIN/GLOBULIN RATIO 0.9 (1.1-1.5); ALKALINE PHOSPHATASE 77 IU/L (46-116); ANION GAP 10 (8-16); ASPARTATE AMINO TRANSFERASE 24 U/L (10-37); BILIRUBIN,TOTAL 0.3 MG/DL (0.1-1.0); BLOOD UREA NITROGEN 39 MG/DL (7-18); CALCIUM 8.7 MG/DL (8.5-10.1); CHLORIDE 109 MMOL/L (99-107); GLUCOSE 111 MG/DL (70-104); MAGNESIUM 2.1 MG/DL (1.5-2.4); POTASSIUM 4.6 MMOL/L (3.5-5.1); SODIUM 143 MMOL/L (135-145); TOTAL CARBON DIOXIDE 24.3 MMOL/L (24-32); TOTAL PROTEIN 6.8 G/DL (6.4-8.2); eCRCL 30 ML/MIN; eGFR 40 ML/MIN
[2023-04-15] MEDS: metoprolol succinate 25mg (24-HOUR) SR. Tablet PO SCH (18:54)
[2023-04-15] MEDS: pregabalin 25mg capsule PO SCH (18:55)
[2023-04-15] MEDS: losartan 50mg tablet PO SCH (18:55)
[2023-04-15] MEDS: Melatonin 3mg tablet PO PRN (21:08)
[2023-04-16] MEDS: HYDROmorphone inj. 0.5 MG/0.5 ML DISP.SYRIN IV PRN (00:13)
[2023-04-16 01:00] VITALS: BP 157/79
[2023-04-16] MEDS: labetalol 20mg/4ml (5mg/ml) syringe IV ONE (01:45)
[2023-04-16 02:00] VITALS: BP 146/74; PULSE 79; RESP 15; TEMP 97.5; O2SAT 99
[2023-04-16 06:27] LABS: BASOPHILS % (AUTO) 0.5 % (0-1); EOSINOPHILS # (AUTO) 0.2 X10'3 (0-0.9); EOSINOPHILS % (AUTO) 3.1 % (0-6); HEMATOCRIT 30.7 % (35.0-45.0); HEMOGLOBIN 10.2 g/dl (12.0-16.0); MEAN CORPUSCULAR HEMOGLOBIN 32.3 PG (27.0-31.0); MEAN CORPUSCULAR HGB CONC 33.1 g/dL (33.0-36.5); MEAN CORPUSCULAR VOLUME 97.4 FL (78-98); MEAN PLATELET VOLUME 8.6 FL (7.4-10.4); MONOCYTES # (AUTO) 0.8 X10'3 (0-0.9); MONOCYTES % (AUTO) 13.1 % (2-12); NEUTROPHILS # (AUTO) 3.9 X10'3 (1.8-7.7); NEUTROPHILS % (AUTO) 66.3 % (42-75); PLATELET COUNT 194 X10'3 (140-440); RED BLOOD COUNT 3.15 X10'6 (4.20-5.60); RED CELL DISTRIBUTION WIDTH 13.6 % (11.5-14.5); WHITE BLOOD COUNT 5.8 X10'3 (4.5-11.0)
[2023-04-16 06:32] LABS: ALANINE AMINOTRANSFERASE 19 U/L (12-78); ALBUMIN/GLOBULIN RATIO 0.9 (1.1-1.5); ALKALINE PHOSPHATASE 67 IU/L (46-116); ANION GAP 9 (8-16); ASPARTATE AMINO TRANSFERASE 21 U/L (10-37); BILIRUBIN,TOTAL 0.3 MG/DL (0.1-1.0); BLOOD UREA NITROGEN 33 MG/DL (7-18); CALCIUM 8.9 MG/DL (8.5-10.1); CHLORIDE 112 MMOL/L (99-107); CREATININE 1.22 MG/DL (0.40-0.90); GLUCOSE 106 MG/DL (70-104); POTASSIUM 4.1 MMOL/L (3.5-5.1); SODIUM 144 MMOL/L (135-145); TOTAL CARBON DIOXIDE 23.2 MMOL/L (24-32); TOTAL PROTEIN 6.4 G/DL (6.4-8.2); eCRCL 32 ML/MIN; eGFR 43 ML/MIN
[2023-04-16 07:00] VITALS: BP 147/67; PULSE 76; RESP 17; TEMP 97.5; O2SAT 99
[2023-04-16] MEDS ORDERED: hydroxychloroquine 200mg tablet PO SCH (08:00)
[2023-04-16] MEDS: fludrocortisone acetate 0.1mg tablet PO SCH (08:31)
[2023-04-16] MEDS: tolterodine 2mg SR capsule (24hr) PO SCH (08:31)
[2023-04-16] MEDS: hydroxychloroquine 200mg tablet PO SCH (08:32)
[2023-04-16] MEDS: losartan 50mg tablet PO SCH (08:32)
[2023-04-16 11:00] VITALS: BP 139/61; PULSE 91; RESP 18; TEMP 98.8; O2SAT 96
[2023-04-16 12:00] VITALS: BP_SYST 139; BP_SYST 166; BP_SYST 173; BP_DIAS 65; BP_DIAS 85; BP_DIAS 91; PULSE 82; PULSE 92; PULSE 95
[2023-04-16] MEDS ORDERED: FLO0.1T PO (12:10)
[2023-04-16] MEDS ORDERED: GABA-530 PO (12:10)
[2023-04-16] MEDS ORDERED: LOSA50TA64 PO (12:10)
== END 2023-04-16 13:55 | disposition home or self-care (01) | DRG 280 ==
LOC: ER 10:43 → ED HOLD 13:46 → EDBEDREQ 16:58 → PCU 3S 17:42 → OBSVTOIN 04-15 11:38
PROVIDERS: ADMIT Family Medicine; ATTEND Family Medicine
DX: I95.1 Orthostatic hypotension (principal); I71.00 Dissection of unspecified site of aorta; I21.A1 Myocardial infarction type 2; M34.1 CR(E)ST syndrome; M06.9 Rheumatoid arthritis, unspecified; G89.29 Other chronic pain; M54.9 Dorsalgia, unspecified; J44.9 Chronic obstructive pulmonary disease, unspecified; N18.30 Chronic kidney disease, stage 3 unspecified; E78.00 Pure hypercholesterolemia, unspecified; I12.9 Hypertensive chronic kidney disease with stage 1 through stage 4 chronic kidney disease, or unspecified chronic kidney disease; Z90.49 Acquired absence of other specified parts of digestive tract; Z90.710 Acquired absence of both cervix and uterus; Z88.8 Allergy status to other drugs, medicaments and biological substances; Z79.01 Long term (current) use of anticoagulants; Z79.899 Other long term (current) drug therapy; Z98.1 Arthrodesis status; Z95.1 Presence of aortocoronary bypass graft; Z87.891 Personal history of nicotine dependence; Z88.5 Allergy status to narcotic agent; Z95.5 Presence of coronary angioplasty implant and graft
CPT/HCPCS: 36415; 70450; 71045; 72125; 80048; 80053; 82948; 83735; 83880; 84484; 85025; 85610; 85730; 87081; 93005; 93306; 97161; 97530; 97535; 99285; A6258; A6402; A6446; G0378; J1170; J3490; J7030

== ENCOUNTER 2023-05-13 06:43 | Emergency (ER) | payer MEDICARE ==
[~2023-05-13] VITALS: Ht 162.6 cm; Wt 63.6 kg
[~2023-05-13 06:43] MED LIST changes: -CLOP75TA33 PO; -CYCL-394 PO; +DULO30CA52 PO; -DULO40CA7 PO; -ESCI5TAB PO; +FLO0.1T PO; +GABA-530 PO; +HYDR-3964 PO; -IPRA3AMP31 IH; -LEFL10TA20 PO; +LOSA50TA64 PO; -METH2.5T PO; +METO-384 PO; -PANT-47 PO
[2023-05-13 08:20] LABS: EOSINOPHILS # (AUTO) 0.1 X10'3 (0-0.9); HEMOGLOBIN 11.9 g/dl (12.0-16.0); MEAN CORPUSCULAR VOLUME 96.3 FL (78-98); RED CELL DISTRIBUTION WIDTH 14.2 % (11.5-14.5); WHITE BLOOD COUNT 6.3 X10'3 (4.5-11.0)
[2023-05-13 08:22] LABS: BASOPHILS % (AUTO) 0.5 % (0-1); EOSINOPHILS % (AUTO) 1.1 % (0-6); HEMATOCRIT 36.6 % (35.0-45.0); LYMPHOCYTES # (AUTO) 0.8 X10'3 (1.1-4.8); LYMPHOCYTES % (AUTO) 13.1 % (21-51); MEAN CORPUSCULAR HEMOGLOBIN 31.4 PG (27.0-31.0); MEAN CORPUSCULAR HGB CONC 32.6 g/dL (33.0-36.5); MEAN PLATELET VOLUME 9.4 FL (7.4-10.4); MONOCYTES # (AUTO) 0.8 X10'3 (0-0.9); MONOCYTES % (AUTO) 12.7 % (2-12); NEUTROPHILS # (AUTO) 4.5 X10'3 (1.8-7.7); NEUTROPHILS % (AUTO) 72.6 % (42-75); PLATELET COUNT 193 X10'3 (140-440)
[2023-05-13 09:31] LABS: ALANINE AMINOTRANSFERASE 15 U/L (12-78); ALBUMIN 3.3 G/DL (3.4-5.0); ALKALINE PHOSPHATASE 52 IU/L (46-116); ANION GAP 12 (8-16); ASPARTATE AMINO TRANSFERASE 20 U/L (10-37); BILIRUBIN,TOTAL 0.4 MG/DL (0.1-1.0); BLOOD UREA NITROGEN 31 MG/DL (7-18); BUN/CREATININE RATIO 22.1 (10.0-20.0); CALCIUM 8.9 MG/DL (8.5-10.1); CHLORIDE 106 MMOL/L (99-107); GLUCOSE 97 MG/DL (70-104); POTASSIUM 3.8 MMOL/L (3.5-5.1); SODIUM 145 MMOL/L (135-145); TOTAL CARBON DIOXIDE 26.6 MMOL/L (24-32); TOTAL PROTEIN 6.6 G/DL (6.4-8.2); eCRCL 28 ML/MIN; eGFR 36 ML/MIN
[2023-05-13 09:37] LABS: BILIRUBIN,DIRECT 0.2 MG/DL (0-0.3); MAGNESIUM 1.8 MG/DL (1.5-2.4); PRO BRAIN NATRIURETIC PEPTIDE 1528 PG/ML (0-450)
[2023-05-13] MEDS ORDERED: GADOTERATE MEGLUMINE 7.5 MMOL/15 ML VIAL IV ONE (13:29)
[2023-05-13] MEDS: LidoCAINE 2% Topical Jelly 11mL syringe TOP ONE (16:10)
[2023-05-13] MEDS: losartan 50mg tablet PO SCH (20:16)
[2023-05-13] MEDS: metoprolol succinate 25mg (24-HOUR) SR. Tablet PO SCH (20:17)
[2023-05-14 09:40] VITALS: BP 196/83; PULSE 80; RESP 12; O2SAT 97
== END 2023-05-14 10:21 | disposition short-term general hospital (02) ==
LOC: ER 06:44
DX: S32.039A Unspecified fracture of third lumbar vertebra, initial encounter for closed fracture (principal); Z20.822 Contact with and (suspected) exposure to COVID-19; I12.9 Hypertensive chronic kidney disease with stage 1 through stage 4 chronic kidney disease, or unspecified chronic kidney disease; N18.9 Chronic kidney disease, unspecified; E11.22 Type 2 diabetes mellitus with diabetic chronic kidney disease; G83.4 Cauda equina syndrome; Z88.8 Allergy status to other drugs, medicaments and biological substances; Z79.899 Other long term (current) drug therapy; Z90.49 Acquired absence of other specified parts of digestive tract; Z90.710 Acquired absence of both cervix and uterus; W19.XXXA Unspecified fall, initial encounter; Y93.89 Activity, other specified; Y92.89 Other specified places as the place of occurrence of the external cause; Y99.8 Other external cause status
CPT/HCPCS: 36415; 71045; 72100; 72158; 73030; 73564; 73630; 80048; 80076; 83735; 83880; 84484; 85025; 86885; 86900; 86901; 87811; 93005; 99291; A9575

== ENCOUNTER 2023-06-02 15:07 | Inpatient (IN) | payer MEDICARE ==
[~2023-06-02] VITALS: Ht 162.6 cm; Wt 59.0 kg
[~2023-06-02 15:07] MED LIST changes: +ACET325C6 PO; +DOCU100C40 PO; -DULO30CA52 PO; -FLO0.1T PO; -GABA-530 PO; -HYDR-3964 PO; +HYDR25TA90 PO; +LIDO700A32 TOP; +MAGN400O6 PO; +MULT-1085 PO; +PER5325T PO; +SENN-263 PO
[2023-06-02] MEDS ORDERED: metoprolol tartrate 1mg/ml inj IV SCH (15:35)
[2023-06-02] MEDS: metoprolol tartrate 1mg/ml inj IV SCH (16:12)
[2023-06-02] MEDS: hydrALAZINE 20mg/ml inj. IV ONE (17:18)
[2023-06-02 17:20] LABS: BASOPHILS % (AUTO) 0.5 % (0-1); EOSINOPHILS # (AUTO) 0.1 X10'3 (0-0.9); EOSINOPHILS % (AUTO) 1.4 % (0-6); HEMATOCRIT 36.2 % (35.0-45.0); HEMOGLOBIN 12.1 g/dl (12.0-16.0); LYMPHOCYTES # (AUTO) 0.9 X10'3 (1.1-4.8); LYMPHOCYTES % (AUTO) 10.1 % (21-51); MEAN CORPUSCULAR HGB CONC 33.3 g/dL (33.0-36.5); MEAN CORPUSCULAR VOLUME 93.1 FL (78-98); MEAN PLATELET VOLUME 8.1 FL (7.4-10.4); MONOCYTES # (AUTO) 1.3 X10'3 (0-0.9); MONOCYTES % (AUTO) 14.9 % (2-12); NEUTROPHILS # (AUTO) 6.6 X10'3 (1.8-7.7); NEUTROPHILS % (AUTO) 73.1 % (42-75); PLATELET COUNT 189 X10'3 (140-440); RED BLOOD COUNT 3.89 X10'6 (4.20-5.60); RED CELL DISTRIBUTION WIDTH 14.3 % (11.5-14.5)
[2023-06-02 17:35] LABS: ALBUMIN 2.5 G/DL (3.4-5.0); ANION GAP 11 (8-16); BLOOD UREA NITROGEN 25 MG/DL (7-18); CALCIUM 9.2 MG/DL (8.5-10.1); CHLORIDE 107 MMOL/L (99-107); CREATININE 1.04 MG/DL (0.40-0.90); GLUCOSE 97 MG/DL (70-104); MAGNESIUM 2.1 MG/DL (1.5-2.4); SODIUM 141 MMOL/L (135-145); TOTAL CARBON DIOXIDE 23.4 MMOL/L (24-32); eCRCL 37 ML/MIN; eGFR 51 ML/MIN
[2023-06-02 17:38] LABS: PRO BRAIN NATRIURETIC PEPTIDE > 30000 PG/ML (0-450)
[2023-06-02] MEDS ORDERED: iohexol 350MG/ML 100ml bottle IV ONE (17:58)
[2023-06-02] MEDS: niCARDipine-NS 40mg/200ml IVPB 200 ML IV SCH (18:21)
[2023-06-02] MEDS: furosemide 10 MG/1 ML 10ml inj IV ONE (19:36)
[2023-06-02] MEDS: amLODIPine 5mg tablet PO ONE (19:36)
[2023-06-02] MEDS ORDERED: potassium Cl 40MEQ/1/2NS 520ml 520 ML IV PRN (22:15)
[2023-06-02] MEDS ORDERED: mag hydrox/Alum hydrox/simeth 30ml oral suspension PO PRN (22:15)
[2023-06-02] MEDS ORDERED: magnesium 4gm in 100ml NS 100 ML IV PRN (22:15)
[2023-06-02] MEDS ORDERED: potassium Cl 20 mEq SR tablet PO PRN ×2 (22:15)
[2023-06-02] MEDS ORDERED: magnesium Cl slow-release 64mg tablet PO PRN (22:15)
[2023-06-02] MEDS ORDERED: acetaminophen 325mg tablet PO PRN (22:15)
[2023-06-02] MEDS ORDERED: magnesium 2GM in 50ml NS 50 ML IV PRN (22:15)
[2023-06-03] VITALS (20 sets, daily range): BP systolic 108–158; BP diastolic 58–80; PULSE 80–102; RESP 14–25; TEMP 97–98.1; O2SAT 94–98
[2023-06-03] MEDS: oxyCODONE/APAP 5-325mg tablet PO PRN (04:10)
[2023-06-03 05:42] LABS: BASOPHILS # (AUTO) 0.1 X10'3 (0-0.2); BASOPHILS % (AUTO) 0.5 % (0-1); EOSINOPHILS # (AUTO) 0.1 X10'3 (0-0.9); EOSINOPHILS % (AUTO) 0.8 % (0-6); HEMATOCRIT 32.7 % (35.0-45.0); HEMOGLOBIN 10.9 g/dl (12.0-16.0); LYMPHOCYTES # (AUTO) 0.9 X10'3 (1.1-4.8); LYMPHOCYTES % (AUTO) 9.3 % (21-51); MEAN CORPUSCULAR HEMOGLOBIN 30.9 PG (27.0-31.0); MEAN CORPUSCULAR HGB CONC 33.4 g/dL (33.0-36.5); MEAN CORPUSCULAR VOLUME 92.5 FL (78-98); MEAN PLATELET VOLUME 7.9 FL (7.4-10.4); MONOCYTES # (AUTO) 1.2 X10'3 (0-0.9); MONOCYTES % (AUTO) 12.5 % (2-12); NEUTROPHILS # (AUTO) 7.5 X10'3 (1.8-7.7); NEUTROPHILS % (AUTO) 76.9 % (42-75); PLATELET COUNT 227 X10'3 (140-440); RED BLOOD COUNT 3.53 X10'6 (4.20-5.60); RED CELL DISTRIBUTION WIDTH 14.1 % (11.5-14.5); WHITE BLOOD COUNT 9.8 X10'3 (4.5-11.0)
[2023-06-03 05:56] LABS: ALBUMIN 2.5 G/DL (3.4-5.0); ANION GAP 12 (8-16); BLOOD UREA NITROGEN 21 MG/DL (7-18); BUN/CREATININE RATIO 21.4 (10.0-20.0); CALCIUM 8.8 MG/DL (8.5-10.1); CHLORIDE 106 MMOL/L (99-107); CREATININE 0.98 MG/DL (0.40-0.90); GLUCOSE 104 MG/DL (70-104); MAGNESIUM 1.8 MG/DL (1.5-2.4); POTASSIUM 3.7 MMOL/L (3.5-5.1); SODIUM 141 MMOL/L (135-145); TOTAL CARBON DIOXIDE 23.2 MMOL/L (24-32); eCRCL 40 ML/MIN; eGFR 55 ML/MIN
[2023-06-03] MEDS: K and/or MAG REPLACEMENT MC SCH (08:00)
[2023-06-03] MEDS: docusate sod 100mg capsule PO SCH (08:34)
[2023-06-03] MEDS: losartan 50mg tablet PO SCH (08:35)
[2023-06-03] MEDS: metoprolol succinate 25mg (24-HOUR) SR. Tablet PO SCH (08:36)
[2023-06-03] MEDS: MEROPENEM 1GM/NS 100ML IVPB 100 ML IV SCH (08:40)
[2023-06-03] MEDS: niCARDipine-NS 40mg/200ml IVPB 200 ML IV SCH (08:50)
[2023-06-03 09:31] LABS: PLATELET ESTIMATE NORMAL; TOTAL CELLS COUNTED 100
[2023-06-03] MEDS: ondansetron/PF 4mg/2ml inj IV PRN (19:23)
[2023-06-03] MEDS: furosemide 20 MG/2 ML vial IV ONE (21:31)
[2023-06-04] VITALS (12 sets, daily range): BP systolic 110–162; BP diastolic 52–74; PULSE 80–98; RESP 12–26; TEMP 97.3–98.2; O2SAT 95–98
[2023-06-04] MEDS: hydrALAZINE 25 MG tablet PO PRN (00:35)
[2023-06-04 07:56] LABS: ALBUMIN 2.6 G/DL (3.4-5.0); ANION GAP 8 (8-16); BLOOD UREA NITROGEN 20 MG/DL (7-18); CALCIUM 8.5 MG/DL (8.5-10.1); CHLORIDE 104 MMOL/L (99-107); CREATININE 1.11 MG/DL (0.40-0.90); GLUCOSE 94 MG/DL (70-104); MAGNESIUM 1.8 MG/DL (1.5-2.4); POTASSIUM 3.8 MMOL/L (3.5-5.1); SODIUM 137 MMOL/L (135-145); TOTAL CARBON DIOXIDE 25.1 MMOL/L (24-32); eCRCL 35 ML/MIN; eGFR 47 ML/MIN
[2023-06-04] MEDS: magnesium hydroxide 30ml (MOM) UD suspension PO PRN (07:57)
[2023-06-04 12:58] LABS: BASOPHILS # (AUTO) 0.1 X10'3 (0-0.2); BASOPHILS % (AUTO) 0.7 % (0-1); EOSINOPHILS # (AUTO) 0.2 X10'3 (0-0.9); EOSINOPHILS % (AUTO) 1.8 % (0-6); HEMATOCRIT 32.8 % (35.0-45.0); HEMOGLOBIN 10.8 g/dl (12.0-16.0); LYMPHOCYTES % (AUTO) 10.4 % (21-51); MEAN CORPUSCULAR HEMOGLOBIN 30.5 PG (27.0-31.0); MEAN CORPUSCULAR HGB CONC 32.9 g/dL (33.0-36.5); MEAN CORPUSCULAR VOLUME 92.8 FL (78-98); MEAN PLATELET VOLUME 7.9 FL (7.4-10.4); MONOCYTES # (AUTO) 1.1 X10'3 (0-0.9); MONOCYTES % (AUTO) 11.6 % (2-12); NEUTROPHILS # (AUTO) 7.4 X10'3 (1.8-7.7); NEUTROPHILS % (AUTO) 75.5 % (42-75); PLATELET COUNT 257 X10'3 (140-440); RED BLOOD COUNT 3.53 X10'6 (4.20-5.60); RED CELL DISTRIBUTION WIDTH 13.9 % (11.5-14.5); WHITE BLOOD COUNT 9.8 X10'3 (4.5-11.0)
[2023-06-05 02:00] VITALS: BP 130/83; PULSE 86; RESP 18; TEMP 98.4; O2SAT 99
[2023-06-05 06:00] VITALS: BP 155/80; PULSE 90; RESP 22; TEMP 98; O2SAT 98
[2023-06-05 06:32] LABS: BASOPHILS % (AUTO) 0.4 % (0-1); EOSINOPHILS # (AUTO) 0.2 X10'3 (0-0.9); EOSINOPHILS % (AUTO) 1.8 % (0-6); HEMOGLOBIN 10.7 g/dl (12.0-16.0); LYMPHOCYTES # (AUTO) 1.1 X10'3 (1.1-4.8); LYMPHOCYTES % (AUTO) 10.3 % (21-51); MEAN CORPUSCULAR HEMOGLOBIN 31.4 PG (27.0-31.0); MEAN CORPUSCULAR HGB CONC 33.6 g/dL (33.0-36.5); MEAN CORPUSCULAR VOLUME 93.6 FL (78-98); MEAN PLATELET VOLUME 7.8 FL (7.4-10.4); MONOCYTES # (AUTO) 0.9 X10'3 (0-0.9); MONOCYTES % (AUTO) 8.1 % (2-12); NEUTROPHILS # (AUTO) 8.6 X10'3 (1.8-7.7); NEUTROPHILS % (AUTO) 79.4 % (42-75); PLATELET COUNT 266 X10'3 (140-440); RED BLOOD COUNT 3.42 X10'6 (4.20-5.60); RED CELL DISTRIBUTION WIDTH 14.3 % (11.5-14.5); WHITE BLOOD COUNT 10.8 X10'3 (4.5-11.0)
[2023-06-05 06:45] LABS: ALBUMIN 2.4 G/DL (3.4-5.0); ANION GAP 5 (8-16); BLOOD UREA NITROGEN 22 MG/DL (7-18); BUN/CREATININE RATIO 19.5 (10.0-20.0); CALCIUM 8.8 MG/DL (8.5-10.1); CHLORIDE 106 MMOL/L (99-107); CREATININE 1.13 MG/DL (0.40-0.90); GLUCOSE 99 MG/DL (70-104); MAGNESIUM 2.2 MG/DL (1.5-2.4); POTASSIUM 4.4 MMOL/L (3.5-5.1); SODIUM 137 MMOL/L (135-145); TOTAL CARBON DIOXIDE 26.1 MMOL/L (24-32); eCRCL 34 ML/MIN; eGFR 46 ML/MIN
[2023-06-05 07:30] VITALS: BP_SYST 155; PULSE 90
[2023-06-05 08:00] VITALS: RESP 22; O2SAT 98
== END 2023-06-05 14:30 | DRG 871 ==
LOC: ER 15:07 → ED HOLD 22:18 → PCU 3S 06-03 02:39
PROVIDERS: ADMIT Internal Medicine Critical Care Medicine; ATTEND Family Medicine
PROC: B32T1ZZ Computerized Tomography (CT Scan) of Left Pulmonary Artery using Low Osmolar Contrast (ICD-10-PCS; principal; 2023-06-02)
PROC: B3201ZZ Computerized Tomography (CT Scan) of Thoracic Aorta using Low Osmolar Contrast (ICD-10-PCS; 2023-06-02)
PROC: B32S1ZZ Computerized Tomography (CT Scan) of Right Pulmonary Artery using Low Osmolar Contrast (ICD-10-PCS; 2023-06-02)
PROC: 05HC33Z Insertion of Infusion Device into Left Basilic Vein, Percutaneous Approach (ICD-10-PCS; 2023-06-05)
DX: A41.51 Sepsis due to Escherichia coli [E. coli] (principal); I71.019 Dissection of thoracic aorta, unspecified; I71.02 Dissection of abdominal aorta; I16.1 Hypertensive emergency; Z16.12 Extended spectrum beta lactamase (ESBL) resistance; N39.0 Urinary tract infection, site not specified; T82.534A Leakage of infusion catheter, initial encounter; N17.9 Acute kidney failure, unspecified; I12.9 Hypertensive chronic kidney disease with stage 1 through stage 4 chronic kidney disease, or unspecified chronic kidney disease; M51.36 Other intervertebral disc degeneration, lumbar region; G89.29 Other chronic pain; M54.9 Dorsalgia, unspecified; N18.9 Chronic kidney disease, unspecified; M06.9 Rheumatoid arthritis, unspecified; M34.9 Systemic sclerosis, unspecified; Z88.5 Allergy status to narcotic agent; Z88.8 Allergy status to other drugs, medicaments and biological substances; Z79.899 Other long term (current) drug therapy; Z99.3 Dependence on wheelchair; I25.2 Old myocardial infarction; Z90.49 Acquired absence of other specified parts of digestive tract; Z90.710 Acquired absence of both cervix and uterus; Y92.9 Unspecified place or not applicable
CPT/HCPCS: 36410; 36415; 71045; 71275; 74174; 76937; 80048; 83735; 83880; 84484; 85007; 85025; 87081; 93005; 96374; 96375; 97110; 97161; 97530; 99285; A4314; A4333; A6213; A6258; C1751; G0378; J0360; J1940; J2185; J2405; J3490; J7040; Q9967

== ENCOUNTER 2023-07-09 15:01 | Emergency (ER) | payer MEDICARE ==
[~2023-07-09] VITALS: Ht 162.6 cm; Wt 61.4 kg
[2023-07-09 15:07] VITALS: BP 95/54; PULSE 71; RESP 18; TEMP 98.1; O2SAT 98
== END 2023-07-09 20:27 | disposition left against medical advice (07) ==
LOC: ER 15:02
DX: K59.00 Constipation, unspecified (principal); Z53.21 Procedure and treatment not carried out due to patient leaving prior to being seen by health care provider
CPT/HCPCS: 99281

== ENCOUNTER 2023-07-26 01:21 | Inpatient (IN) | payer MEDICARE ==
[~2023-07-26] VITALS: Ht 162.6 cm; Wt 68.5 kg
[2023-07-26] MEDS: normal saline 1000ml 1,000 ML IV ONE ×2 (02:06→03:55)
[2023-07-26] MEDS: ondansetron/PF 4mg/2ml inj IV ONE (02:13)
[2023-07-26] MEDS: acetaminophen 1,000mg/100ml IV 100 ML IV ONE (02:14)
[2023-07-26 03:08] LABS: BASOPHILS % (AUTO) 0.3 % (0-1); EOSINOPHILS % (AUTO) 0.2 % (0-6); HEMATOCRIT 26.4 % (35.0-45.0); HEMOGLOBIN 8.7 g/dl (12.0-16.0); LYMPHOCYTES # (AUTO) 0.2 X10'3 (1.1-4.8); LYMPHOCYTES % (AUTO) 2.6 % (21-51); MEAN CORPUSCULAR HEMOGLOBIN 31.5 PG (27.0-31.0); MEAN CORPUSCULAR HGB CONC 33.1 g/dL (33.0-36.5); MEAN CORPUSCULAR VOLUME 95.2 FL (78-98); MEAN PLATELET VOLUME 8.5 FL (7.4-10.4); MONOCYTES # (AUTO) 0.5 X10'3 (0-0.9); MONOCYTES % (AUTO) 7.8 % (2-12); NEUTROPHILS # (AUTO) 5.5 X10'3 (1.8-7.7); NEUTROPHILS % (AUTO) 89.1 % (42-75); PLATELET COUNT 136 X10'3 (140-440); RED BLOOD COUNT 2.77 X10'6 (4.20-5.60); RED CELL DISTRIBUTION WIDTH 14.2 % (11.5-14.5); WHITE BLOOD COUNT 6.1 X10'3 (4.5-11.0)
[2023-07-26 03:27] LABS: ALBUMIN 2.3 G/DL (3.4-5.0); ANION GAP 13 (8-16); BLOOD UREA NITROGEN 32 MG/DL (7-18); BUN/CREATININE RATIO 18.8 (10.0-20.0); CALCIUM 8.2 MG/DL (8.5-10.1); CHLORIDE 104 MMOL/L (99-107); GLUCOSE 95 MG/DL (70-104); MAGNESIUM 1.5 MG/DL (1.5-2.4); POTASSIUM 3.6 MMOL/L (3.5-5.1); SODIUM 137 MMOL/L (135-145); TOTAL CARBON DIOXIDE 19.8 MMOL/L (24-32); eCRCL 23 ML/MIN; eGFR 29 ML/MIN
[2023-07-26] MEDS ORDERED: CefTRIAXone/D5W-Rocephin 1gm 50 ML IV ONE (03:35)
[2023-07-26] MEDS: vancomycin/NS 1 GM ADD-VANTAGE 250 ML IV ONE (03:55)
[2023-07-26 05:20] LABS: BILIRUBIN,URINE NEGATIVE (Neg); CLARITY,URINE CLOUDY (Clear); COLOR,URINE YELLOW (Yellow); GLUCOSE, URINE NEGATIVE (Neg); KETONES,URINE NEGATIVE (Neg); LEUKOCYTE ESTERASE ,URINE TRACE (Neg); NITRITES, URINE NEGATIVE (Neg); OCCULT BLOOD,URINE MODERATE (Neg); PH,URINE 5.5 (4.8-8.0); PROTEIN,URINE 100 mg/dl (Neg); UROBILINOGEN,URINE 0.2 E.U/dL (0.2-1.0)
[2023-07-26] MEDS: meropenem inj 500 MG in normal saline 100ml IV soln 100 ML IV ONE (05:22)
[2023-07-26 05:23] LABS: UA COLLECTION TYPE OTHER
[2023-07-26 05:30] LABS: FINE GRANULAR CAST 0-3 /LPF (NEGATIVE)
[2023-07-26 05:31] LABS: SQUAMOUS EPITHELIAL CELL,UR FEW /LPF (FEW)
[2023-07-26 05:32] LABS: WBC,URINE 50-100 /HPF (0-4)
[2023-07-26 05:34] LABS: RBC,URINE 20-50 /HPF (0-2)
[2023-07-26 05:35] LABS: TRANSITIONAL EPI CELLS,URINE FEW /HPF
[2023-07-26 05:36] LABS: BACTERIA,URINE 3+ /HPF (Neg)
[2023-07-26] MEDS ORDERED: mag hydrox/Alum hydrox/simeth 30ml oral suspension PO PRN (06:10)
[2023-07-26] MEDS ORDERED: magnesium Cl slow-release 64mg tablet PO PRN (06:10)
[2023-07-26] MEDS ORDERED: ondansetron/PF 4mg/2ml inj IV PRN (06:10)
[2023-07-26] MEDS ORDERED: potassium Cl 20 mEq SR tablet PO PRN (06:10)
[2023-07-26] MEDS ORDERED: magnesium 2GM in 50ml NS 50 ML IV PRN (06:10)
[2023-07-26] MEDS ORDERED: magnesium 4gm in 100ml NS 100 ML IV PRN (06:10)
[2023-07-26] MEDS ORDERED: potassium Cl 40MEQ/1/2NS 520ml 520 ML IV PRN (06:10)
[2023-07-26] MEDS ORDERED: magnesium hydroxide 30ml (MOM) UD suspension PO PRN (06:10)
[2023-07-26 06:17] LABS: C-REACTIVE PROTEIN 20.17 MG/DL (0.0-0.5)
[2023-07-26] MEDS: K and/or MAG REPLACEMENT MC SCH (08:00)
[2023-07-26 08:32] LABS: POTASSIUM 3.5 MMOL/L (3.5-5.1)
[2023-07-26] MEDS: metoprolol succinate 25mg (24-HOUR) SR. Tablet PO SCH (08:37)
[2023-07-26] MEDS: docusate sod 100mg capsule PO SCH (08:37)
[2023-07-26] MEDS: heparin, porcine 5000 units/ml vial SQ SCH (08:39)
[2023-07-26] MEDS: normal saline 1000ml 1,000 ML IV SCH (08:40)
[2023-07-26 11:50] VITALS: BP 180/110; PULSE 100; RESP 18; RESP 20; TEMP 98.4; O2SAT 94
[2023-07-26 13:00] VITALS: BP 152/61; PULSE 94
[2023-07-26] MEDS: diazepam inj 5 MG/ML inj. IV PRN (13:05)
[2023-07-26] MEDS: hydrALAZINE 25 MG tablet PO PRN (13:12)
[2023-07-26 15:00] VITALS: BP 94/49; PULSE 86; RESP 16; TEMP 98.6; O2SAT 94
[2023-07-26 18:00] VITALS: BP 106/48; PULSE 86; RESP 13; TEMP 100; O2SAT 99
[2023-07-26 20:00] VITALS: RESP 13; O2SAT 99
[2023-07-26] MEDS: meropenem inj 500 MG in normal saline 100ml IV soln 100 ML IV SCH (21:59)
[2023-07-26 22:00] VITALS: BP 106/48; PULSE 82; RESP 22; TEMP 98.4; O2SAT 97
[2023-07-27] VITALS (7 sets, daily range): BP systolic 122–150; BP diastolic 54–68; PULSE 82–87; RESP 11–22; TEMP 98.1–99.7; O2SAT 93–97
[2023-07-27 09:03] LABS: HEMOGLOBIN 8.7 g/dl (12.0-16.0); LYMPHOCYTES # (AUTO) 0.5 X10'3 (1.1-4.8); MONOCYTES # (AUTO) 0.9 X10'3 (0-0.9); MONOCYTES % (AUTO) 11.7 % (2-12); NEUTROPHILS # (AUTO) 6.2 X10'3 (1.8-7.7); WHITE BLOOD COUNT 7.6 X10'3 (4.5-11.0)
[2023-07-27 09:05] LABS: BASOPHILS % (AUTO) 0.1 % (0-1); EOSINOPHILS # (AUTO) 0.1 X10'3 (0-0.9); EOSINOPHILS % (AUTO) 0.8 % (0-6); LYMPHOCYTES % (AUTO) 6.1 % (21-51); MEAN CORPUSCULAR HEMOGLOBIN 31.7 PG (27.0-31.0); MEAN CORPUSCULAR HGB CONC 33.6 g/dL (33.0-36.5); MEAN CORPUSCULAR VOLUME 94.5 FL (78-98); MEAN PLATELET VOLUME 9.4 FL (7.4-10.4); NEUTROPHILS % (AUTO) 81.3 % (42-75); PLATELET COUNT 149 X10'3 (140-440); RED BLOOD COUNT 2.75 X10'6 (4.20-5.60); RED CELL DISTRIBUTION WIDTH 14.5 % (11.5-14.5)
[2023-07-27 09:14] LABS: ALANINE AMINOTRANSFERASE 20 U/L (12-78); ALBUMIN 2.2 G/DL (3.4-5.0); ALBUMIN/GLOBULIN RATIO 0.6 (1.1-1.5); ALKALINE PHOSPHATASE 116 IU/L (46-116); ANION GAP 12 (8-16); ASPARTATE AMINO TRANSFERASE 23 U/L (10-37); BILIRUBIN,TOTAL 0.2 MG/DL (0.1-1.0); BLOOD UREA NITROGEN 32 MG/DL (7-18); BUN/CREATININE RATIO 21.6 (10.0-20.0); CALCIUM 8.1 MG/DL (8.5-10.1); CHLORIDE 104 MMOL/L (99-107); CREATININE 1.48 MG/DL (0.40-0.90); GLUCOSE 93 MG/DL (70-104); MAGNESIUM 1.7 MG/DL (1.5-2.4); POTASSIUM 3.3 MMOL/L (3.5-5.1); SODIUM 134 MMOL/L (135-145); TOTAL CARBON DIOXIDE 18.5 MMOL/L (24-32); TOTAL PROTEIN 5.9 G/DL (6.4-8.2); eCRCL 26 ML/MIN; eGFR 34 ML/MIN
[2023-07-27] MEDS: potassium Cl 20 mEq SR tablet PO PRN (11:06)
[2023-07-27] MEDS ORDERED: CefTRIAXone 2gm/D5W 50ml BAG 50 ML IV SCH (14:15)
[2023-07-27] MEDS ORDERED: normal saline 500ml IV soln 500 ML IV ONE ×2 (15:50)
[2023-07-27] MEDS: normal saline 500ml IV soln 500 ML IV ONE (15:52)
[2023-07-27] MEDS: MEROPENEM 1GM/NS 100ML IVPB 100 ML IV SCH (19:23)
[2023-07-27] MEDS: losartan 50mg tablet PO ONE (20:05)
[2023-07-27] MEDS: polyethylene glycol 3350 17gm powd pack PO SCH (20:12)
[2023-07-28] VITALS (8 sets, daily range): BP systolic 135–167; BP diastolic 65–110; PULSE 70–92; RESP 16–20; TEMP 97.4–99; O2SAT 92–98
[2023-07-28 07:10] LABS: BASOPHILS % (AUTO) 0.4 % (0-1); LYMPHOCYTES # (AUTO) 0.6 X10'3 (1.1-4.8); MONOCYTES # (AUTO) 1.3 X10'3 (0-0.9); MONOCYTES % (AUTO) 15.8 % (2-12)
[2023-07-28 07:11] LABS: ALANINE AMINOTRANSFERASE 21 U/L (12-78); ALBUMIN 2.1 G/DL (3.4-5.0); ALBUMIN/GLOBULIN RATIO 0.5 (1.1-1.5); ALKALINE PHOSPHATASE 126 IU/L (46-116); ANION GAP 11 (8-16); ASPARTATE AMINO TRANSFERASE 23 U/L (10-37); BILIRUBIN,TOTAL 0.3 MG/DL (0.1-1.0); BLOOD UREA NITROGEN 29 MG/DL (7-18); BUN/CREATININE RATIO 23.6 (10.0-20.0); CALCIUM 8.3 MG/DL (8.5-10.1); CHLORIDE 107 MMOL/L (99-107); CREATININE 1.23 MG/DL (0.40-0.90); GLUCOSE 99 MG/DL (70-104); MAGNESIUM 1.8 MG/DL (1.5-2.4); POTASSIUM 4.1 MMOL/L (3.5-5.1); SODIUM 134 MMOL/L (135-145); TOTAL CARBON DIOXIDE 16.4 MMOL/L (24-32); TOTAL PROTEIN 6.1 G/DL (6.4-8.2); eCRCL 32 ML/MIN; eGFR 42 ML/MIN
[2023-07-28 07:12] LABS: EOSINOPHILS # (AUTO) 0.1 X10'3 (0-0.9); EOSINOPHILS % (AUTO) 0.7 % (0-6); HEMATOCRIT 26.6 % (35.0-45.0); HEMOGLOBIN 8.6 g/dl (12.0-16.0); LYMPHOCYTES % (AUTO) 7.1 % (21-51); MEAN CORPUSCULAR HEMOGLOBIN 30.6 PG (27.0-31.0); MEAN CORPUSCULAR HGB CONC 32.4 g/dL (33.0-36.5); MEAN CORPUSCULAR VOLUME 94.4 FL (78-98); MEAN PLATELET VOLUME 8.8 FL (7.4-10.4); NEUTROPHILS # (AUTO) 6.2 X10'3 (1.8-7.7); PLATELET COUNT 169 X10'3 (140-440); RED BLOOD COUNT 2.82 X10'6 (4.20-5.60); RED CELL DISTRIBUTION WIDTH 14.4 % (11.5-14.5); WHITE BLOOD COUNT 8.2 X10'3 (4.5-11.0)
[2023-07-28] MEDS: acetaminophen 325mg tablet PO PRN (07:24)
[2023-07-28 08:53] LABS: PLATELET ESTIMATE NORMAL; TOTAL CELLS COUNTED 100
[2023-07-28] MEDS: metoprolol succinate 25mg (24-HOUR) SR. Tablet PO SCH (11:43)
[2023-07-28] MEDS: multivitamins, therapeutics tablet PO SCH (11:43)
[2023-07-28] MEDS: losartan 50mg tablet PO SCH (11:44)
[2023-07-28] MEDS: LIDOcaine 5% patch TP SCH (11:49)
[2023-07-29] VITALS (8 sets, daily range): BP systolic 116–171; BP diastolic 42–89; PULSE 88–104; RESP 18–22; TEMP 98–99; O2SAT 93–99
[2023-07-29] MEDS: labetalol 20mg/4ml (5mg/ml) syringe IV ONE (03:29)
[2023-07-29 07:10] LABS: BASOPHILS % (AUTO) 0.4 % (0-1); EOSINOPHILS # (AUTO) 0.1 X10'3 (0-0.9); HEMOGLOBIN 9.1 g/dl (12.0-16.0); MONOCYTES # (AUTO) 1.4 X10'3 (0-0.9); NEUTROPHILS # (AUTO) 6.5 X10'3 (1.8-7.7); WHITE BLOOD COUNT 8.7 X10'3 (4.5-11.0)
[2023-07-29 07:13] LABS: HEMATOCRIT 27.2 % (35.0-45.0); LYMPHOCYTES # (AUTO) 0.7 X10'3 (1.1-4.8); LYMPHOCYTES % (AUTO) 7.6 % (21-51); MEAN CORPUSCULAR HEMOGLOBIN 31.4 PG (27.0-31.0); MEAN CORPUSCULAR HGB CONC 33.3 g/dL (33.0-36.5); MEAN CORPUSCULAR VOLUME 94.3 FL (78-98); MEAN PLATELET VOLUME 9.3 FL (7.4-10.4); MONOCYTES % (AUTO) 15.6 % (2-12); NEUTROPHILS % (AUTO) 75.4 % (42-75); PLATELET COUNT 191 X10'3 (140-440); RED BLOOD COUNT 2.89 X10'6 (4.20-5.60); RED CELL DISTRIBUTION WIDTH 14.6 % (11.5-14.5)
[2023-07-29 07:28] LABS: ALANINE AMINOTRANSFERASE 24 U/L (12-78); ALBUMIN 2.1 G/DL (3.4-5.0); ALBUMIN/GLOBULIN RATIO 0.6 (1.1-1.5); ALKALINE PHOSPHATASE 123 IU/L (46-116); ANION GAP 12 (8-16); ASPARTATE AMINO TRANSFERASE 31 U/L (10-37); BILIRUBIN,TOTAL 0.3 MG/DL (0.1-1.0); BLOOD UREA NITROGEN 25 MG/DL (7-18); BUN/CREATININE RATIO 22.3 (10.0-20.0); CALCIUM 8.3 MG/DL (8.5-10.1); CHLORIDE 112 MMOL/L (99-107); CREATININE 1.12 MG/DL (0.40-0.90); GLUCOSE 102 MG/DL (70-104); MAGNESIUM 1.6 MG/DL (1.5-2.4); POTASSIUM 3.9 MMOL/L (3.5-5.1); SODIUM 141 MMOL/L (135-145); TOTAL CARBON DIOXIDE 17.2 MMOL/L (24-32); TOTAL PROTEIN 5.8 G/DL (6.4-8.2); eCRCL 35 ML/MIN; eGFR 47 ML/MIN
[2023-07-29 08:29] LABS: PLATELET ESTIMATE NORMAL; TOTAL CELLS COUNTED 100
[2023-07-29] MEDS: acetaminophen 325mg tablet PO PRN (14:53)
[2023-07-30] MEDS: labetalol 20mg/4ml (5mg/ml) syringe IV ONE (00:10)
[2023-07-30 01:17] VITALS: BP 157/71; PULSE 90; RESP 16; O2SAT 97
[2023-07-30 02:00] VITALS: BP 177/87; PULSE 104; RESP 28; TEMP 97.5; O2SAT 98
[2023-07-30 06:00] VITALS: BP 172/78; PULSE 99; RESP 24; TEMP 97.6; O2SAT 99
[2023-07-30 06:34] LABS: BASOPHILS % (AUTO) 0.4 % (0-1); EOSINOPHILS # (AUTO) 0.1 X10'3 (0-0.9); EOSINOPHILS % (AUTO) 1.2 % (0-6); HEMATOCRIT 28.3 % (35.0-45.0); HEMOGLOBIN 9.3 g/dl (12.0-16.0); LYMPHOCYTES # (AUTO) 0.8 X10'3 (1.1-4.8); LYMPHOCYTES % (AUTO) 9.5 % (21-51); MEAN CORPUSCULAR HEMOGLOBIN 30.7 PG (27.0-31.0); MEAN CORPUSCULAR HGB CONC 32.8 g/dL (33.0-36.5); MEAN CORPUSCULAR VOLUME 93.6 FL (78-98); MEAN PLATELET VOLUME 7.9 FL (7.4-10.4); MONOCYTES # (AUTO) 1.2 X10'3 (0-0.9); MONOCYTES % (AUTO) 13.6 % (2-12); NEUTROPHILS # (AUTO) 6.6 X10'3 (1.8-7.7); NEUTROPHILS % (AUTO) 75.3 % (42-75); PLATELET COUNT 245 X10'3 (140-440); RED BLOOD COUNT 3.03 X10'6 (4.20-5.60); RED CELL DISTRIBUTION WIDTH 14.8 % (11.5-14.5); WHITE BLOOD COUNT 8.7 X10'3 (4.5-11.0)
[2023-07-30 07:03] LABS: ALANINE AMINOTRANSFERASE 26 U/L (12-78); ALBUMIN 2.1 G/DL (3.4-5.0); ALBUMIN/GLOBULIN RATIO 0.6 (1.1-1.5); ALKALINE PHOSPHATASE 115 IU/L (46-116); ANION GAP 10 (8-16); ASPARTATE AMINO TRANSFERASE 29 U/L (10-37); BILIRUBIN,TOTAL 0.3 MG/DL (0.1-1.0); BLOOD UREA NITROGEN 21 MG/DL (7-18); BUN/CREATININE RATIO 20.2 (10.0-20.0); CALCIUM 8.3 MG/DL (8.5-10.1); CHLORIDE 111 MMOL/L (99-107); CREATININE 1.04 MG/DL (0.40-0.90); GLUCOSE 99 MG/DL (70-104); MAGNESIUM 1.8 MG/DL (1.5-2.4); SODIUM 139 MMOL/L (135-145); TOTAL CARBON DIOXIDE 18.4 MMOL/L (24-32); TOTAL PROTEIN 5.9 G/DL (6.4-8.2); eCRCL 37 ML/MIN; eGFR 51 ML/MIN
[2023-07-30 07:06] LABS: PLATELET ESTIMATE NORMAL; TOTAL CELLS COUNTED 100
[2023-07-30 08:00] VITALS: RESP 24; O2SAT 99
[2023-07-30 08:07] VITALS: BP_SYST 172; PULSE 90
[2023-07-30] MEDS: metoprolol succinate 25mg (24-HOUR) SR. Tablet PO SCH (08:07)
[2023-07-30] MEDS: amLODIPine 5mg tablet PO SCH (08:07)
[2023-07-30] MEDS ORDERED: polyethylene glycol 3350 pkt PO (11:30)
[2023-07-30] MEDS ORDERED: FLUT9.9S BOTHNARES (11:32)
== END 2023-07-30 12:10 | disposition home health service (06) | DRG 871 ==
LOC: ER 01:22 → ED HOLD 06:12 → EDBEDREQ 10:43 → PCU 3S 12:16
PROVIDERS: ADMIT Student in an Organized Health Care Education/Training Program; ATTEND Internal Medicine
PROC: 05HC33Z Insertion of Infusion Device into Left Basilic Vein, Percutaneous Approach (ICD-10-PCS; principal; 2023-07-30)
DX: A41.51 Sepsis due to Escherichia coli [E. coli] (principal); I71.00 Dissection of unspecified site of aorta; J96.01 Acute respiratory failure with hypoxia; N39.0 Urinary tract infection, site not specified; N17.9 Acute kidney failure, unspecified; G95.29 Other cord compression; Z16.12 Extended spectrum beta lactamase (ESBL) resistance; Z66 Do not resuscitate; Z20.822 Contact with and (suspected) exposure to COVID-19; M06.9 Rheumatoid arthritis, unspecified; N18.30 Chronic kidney disease, stage 3 unspecified; I12.9 Hypertensive chronic kidney disease with stage 1 through stage 4 chronic kidney disease, or unspecified chronic kidney disease; G89.4 Chronic pain syndrome; D64.9 Anemia, unspecified; M54.9 Dorsalgia, unspecified; M51.24 Other intervertebral disc displacement, thoracic region; I25.10 Atherosclerotic heart disease of native coronary artery without angina pectoris; Z88.8 Allergy status to other drugs, medicaments and biological substances; Z88.5 Allergy status to narcotic agent; Z79.899 Other long term (current) drug therapy; I25.2 Old myocardial infarction; Z90.49 Acquired absence of other specified parts of digestive tract; Z90.710 Acquired absence of both cervix and uterus; Z99.3 Dependence on wheelchair; Z95.1 Presence of aortocoronary bypass graft; Z83.3 Family history of diabetes mellitus; Z82.49 Family history of ischemic heart disease and other diseases of the circulatory system; Z86.73 Personal history of transient ischemic attack (TIA), and cerebral infarction without residual deficits
CPT/HCPCS: 36410; 36415; 71045; 72141; 74176; 76942; 80048; 80053; 81001; 83605; 83735; 84132; 84145; 84484; 85007; 85025; 85651; 86140; 87040; 87077; 87081; 87088; 87186; 87502; 87503; 87811; 93005; 96365; 96367; 97110; 97161; 97530; 99291; A4353; A4615; C1751; G0378; J0131; J1644; J2185; J2405; J3360; J3370; J3490; J7030; J7040

== ENCOUNTER 2023-08-01 10:05 | Emergency (ER) | payer MEDICARE ==
[~2023-08-01] VITALS: Ht 157.5 cm; Wt 70.0 kg
[~2023-08-01 10:05] MED LIST changes: +FLUT9.9S BOTHNARES; -MAGN400O6 PO; -PER5325T PO; -SENN-263 PO; +polyethylene glycol 3350 pkt PO
[2023-08-01 10:33] LABS: BASOPHILS # (AUTO) 0.1 X10'3 (0-0.2); BASOPHILS % (AUTO) 0.8 % (0-1); EOSINOPHILS # (AUTO) 0.3 X10'3 (0-0.9); EOSINOPHILS % (AUTO) 3.1 % (0-6); HEMATOCRIT 30.8 % (35.0-45.0); HEMOGLOBIN 10.3 g/dl (12.0-16.0); LYMPHOCYTES # (AUTO) 1.1 X10'3 (1.1-4.8); LYMPHOCYTES % (AUTO) 11.8 % (21-51); MEAN CORPUSCULAR HGB CONC 33.3 g/dL (33.0-36.5); MEAN CORPUSCULAR VOLUME 93.1 FL (78-98); MEAN PLATELET VOLUME 7.1 FL (7.4-10.4); MONOCYTES # (AUTO) 0.5 X10'3 (0-0.9); MONOCYTES % (AUTO) 5.3 % (2-12); NEUTROPHILS # (AUTO) 7.5 X10'3 (1.8-7.7); PLATELET COUNT 331 X10'3 (140-440); RED BLOOD COUNT 3.31 X10'6 (4.20-5.60); RED CELL DISTRIBUTION WIDTH 14.7 % (11.5-14.5); WHITE BLOOD COUNT 9.5 X10'3 (4.5-11.0)
[2023-08-01 10:52] LABS: ALANINE AMINOTRANSFERASE 25 U/L (12-78); ALBUMIN 2.7 G/DL (3.4-5.0); ALBUMIN/GLOBULIN RATIO 0.7 (1.1-1.5); ALKALINE PHOSPHATASE 117 IU/L (46-116); ANION GAP 10 (8-16); ASPARTATE AMINO TRANSFERASE 32 U/L (10-37); BILIRUBIN,TOTAL 0.3 MG/DL (0.1-1.0); BLOOD UREA NITROGEN 19 MG/DL (7-18); BUN/CREATININE RATIO 18.8 (10.0-20.0); CALCIUM 8.9 MG/DL (8.5-10.1); CHLORIDE 112 MMOL/L (99-107); CREATININE 1.01 MG/DL (0.40-0.90); GLUCOSE 97 MG/DL (70-104); POTASSIUM 4.6 MMOL/L (3.5-5.1); SODIUM 145 MMOL/L (135-145); TOTAL CARBON DIOXIDE 22.6 MMOL/L (24-32); TOTAL PROTEIN 6.6 G/DL (6.4-8.2); eCRCL 35 ML/MIN; eGFR 53 ML/MIN
[2023-08-01 10:55] LABS: PLATELET ESTIMATE NORMAL; TOTAL CELLS COUNTED 100
[2023-08-01 10:59] LABS: PRO BRAIN NATRIURETIC PEPTIDE 12537 PG/ML (0-450)
[2023-08-01 16:54] VITALS: BP 143/78; PULSE 76; RESP 20; TEMP 98.1; O2SAT 95
== END 2023-08-01 14:40 | disposition home or self-care (01) ==
LOC: ER 10:06
DX: R60.0 Localized edema (principal); Z72.89 Other problems related to lifestyle; I12.9 Hypertensive chronic kidney disease with stage 1 through stage 4 chronic kidney disease, or unspecified chronic kidney disease; N18.9 Chronic kidney disease, unspecified; G89.29 Other chronic pain; M54.9 Dorsalgia, unspecified; Z90.49 Acquired absence of other specified parts of digestive tract; Z95.1 Presence of aortocoronary bypass graft; Z90.710 Acquired absence of both cervix and uterus; Z79.1 Long term (current) use of non-steroidal anti-inflammatories (NSAID); Z79.899 Other long term (current) drug therapy; Z88.8 Allergy status to other drugs, medicaments and biological substances
CPT/HCPCS: 36415; 80053; 83880; 84484; 85007; 85025; 93005; 99284